=== PATIENT | male | born 1975 ===

== ENCOUNTER 2020-03-05 07:35 | Outpatient (REF) | payer OTHER, SELFPAY ==
--- NOTE | 2020-03-05 08:17 | XR_ITS ---
EXAMINATION: XR THORACOLUMBAR SPINE CLINICAL INFORMATION: Ankylosing spondylitis COMPARISON: Previous thoracic spine MRI May 2017 and x-ray May 2016 TECHNIQUE: 3 views of the thoracic spine including swimmer's view FINDINGS: Bone alignment is normal. No fracture or dislocation is seen. There are small vertebral body marginal osteophytes in the mid and lower thoracic spine. Disc spaces are normal. Paraspinal soft tissues are normal. XR/XR thoracic spine 2V IMPRESSION: Small marginal vertebral body osteophytes in the mid and lower thoracic spine.
== END 2020-03-05 07:36 | disposition home or self-care (01) ==
LOC: HO.XRAY 07:35
PROVIDERS: PCP Family Medicine; Referring Provider Family Medicine; Visit Provider Student in an Organized Health Care Education/Training Program
DX: M45.8 Ankylosing spondylitis sacral and sacrococcygeal region (principal); Z79.891 Long term (current) use of opiate analgesic; Z79.899 Other long term (current) drug therapy
CPT/HCPCS: 72070; 99212

== ENCOUNTER 2020-08-12 11:46 | Outpatient (REF) | payer OTHER, SELFPAY ==
[2020-08-12 12:49] LABS: MANUAL DIFF FLAG NO
[2020-08-12 12:56] LABS: Basophils Percent Auto 0.2 % (0-2); Eosinophils Absolute Auto 0.1 X10*3/uL (0.0-0.4); Eosinophils Percent Auto 1.2 % (0-4); Hematocrit 46.5 % (42-52); Hemoglobin 15.2 g/dl (14.0-18.0); Imm Gran Abs Auto 0.01 X10*3/uL (0.00-0.03); Imm Gran Pct Auto 0.2 % (0.0-0.4); Lymphocytes Percent Auto 38.2 % (20-40); Mean Corpuscular HGB Conc 32.7 g/dl (31.0-36.0); Mean Corpuscular Hemoglobin 26.7 pg (27.0-33.0); Mean Corpuscular Volume 81.6 fL (80-98); Mean Platelet Volume 10.6 fL (9.4-12.4); Monocytes Absolute Auto 0.4 X10*3/uL (0.1-1.2); Neutrophils Absolute Auto 2.7 X10*3/uL (2.0-8.3); Neutrophils Percent Auto 53.2 % (45-73); Platelet Count 210 X10*3/uL (160-400); Red Cell Distribution Width 12.6 % (11.0-16.0); White Blood Count 5.1 X10*3/uL (4.8-10.8)
[2020-08-12 13:26] LABS: Alanine Aminotransferase 16 U/L (0-40); Albumin Level 4.6 g/dL (3.5-5.0); Alkaline Phosphatase 63 U/L (39-117); Anion Gap 12 (12-20); Aspartate Amino Transferase 14 U/L (5-37); Bilirubin Total 0.4 mg/dL (0.0-1.0); Blood Urea Nitrogen 14 mg/dL (9-16); C Reactive Protein 0.78 mg/dL (< or = 0.50); Calcium 9.7 mg/dL (8.4-10.2); Carbon Dioxide 29 mmol/L (22-29); Chloride 105 mmol/L (96-108); Estimated Glomerular Filt Rate > 60; Glucose Random 84 mg/dL (60-115); Sodium 141 mmol/L (135-145); Total Protein 7.2 g/dL (6.5-8.0)
[2020-08-12 14:03] LABS: Erythrocyte Sedimentation Rate 2 MM/HR (0-15)
== END 2020-08-12 11:47 | disposition home or self-care (01) ==
LOC: HO.LAB 11:46
PROVIDERS: Visit Provider Student in an Organized Health Care Education/Training Program
DX: M45.8 Ankylosing spondylitis sacral and sacrococcygeal region (principal)
CPT/HCPCS: 36415; 80053; 85025; 85652; 86140

== ENCOUNTER → 2020-08-20 07:23 | Outpatient (BNVA) | payer OTHER, SELFPAY | PROVIDERS: PCP Family Medicine; Visit Provider Student in an Organized Health Care Education/Training Program | DX: M45.8 Ankylosing spondylitis sacral and sacrococcygeal region (principal) | CPT/HCPCS: 99212 ==

== ENCOUNTER → 2021-03-21 09:26 | Outpatient (BNVA) | payer OTHER, SELFPAY | PROVIDERS: PCP Family Medicine; Visit Provider Nurse Practitioner Family | DX: M45.8 Ankylosing spondylitis sacral and sacrococcygeal region (principal) | CPT/HCPCS: 99212 ==

== ENCOUNTER → 2021-05-16 14:49 | Outpatient (BNVA) | payer OTHER, SELFPAY | PROVIDERS: PCP Family Medicine; Visit Provider Anesthesiology | DX: M45.8 Ankylosing spondylitis sacral and sacrococcygeal region (principal) | CPT/HCPCS: 99202 ==

== ENCOUNTER → 2021-07-18 09:34 | Outpatient (BNVA) | payer OTHER, SELFPAY | PROVIDERS: PCP Family Medicine; Visit Provider Nurse Practitioner Family | DX: Z13.89 Encounter for screening for other disorder (principal) ==

== ENCOUNTER 2021-07-18 12:43 | Outpatient (REF) | payer OTHER, SELFPAY ==
[2021-07-18 13:29] LABS: MANUAL DIFF FLAG NO
[2021-07-18 13:32] LABS: Basophils Percent Auto 0.2 % (0-2); Eosinophils Absolute Auto 0.1 X10*3/uL (0.0-0.4); Eosinophils Percent Auto 1.2 % (0-4); Hematocrit 44.9 % (42.0-52.0); Hemoglobin 14.9 g/dl (14.0-18.0); Imm Gran Abs Auto 0.01 X10*3/uL (0.00-0.03); Imm Gran Pct Auto 0.2 % (0.0-0.4); Lymphocytes Absolute Auto 2.9 X10*3/uL (1.2-4.9); Lymphocytes Percent Auto 50.1 % (20-40); Mean Corpuscular HGB Conc 33.2 g/dl (31.0-36.0); Mean Corpuscular Hemoglobin 27.2 pg (27.0-33.0); Mean Corpuscular Volume 81.9 fL (80.0-98.0); Mean Platelet Volume 10.3 fL (9.4-12.4); Monocytes Absolute Auto 0.3 X10*3/uL (0.1-1.2); Monocytes Percent Auto 5.8 % (2-11); Neutrophils Absolute Auto 2.5 x10*3/uL (2.0-8.3); Neutrophils Percent Auto 42.5 % (45-73); Platelet Count 213 X10*3/uL (160-400); Red Blood Count 5.48 X10*6/uL (4.60-5.80); Red Cell Distribution Width 12.6 % (11.0-16.0); White Blood Count 5.9 X10*3/uL (4.8-10.8)
[2021-07-18 13:50] LABS: Alanine Aminotransferase 18 U/L (0-40); Albumin Level 4.8 g/dL (3.5-5.0); Alkaline Phosphatase 56 U/L (39-117); Anion Gap 12 (12-20); Aspartate Amino Transferase 14 U/L (5-37); Bilirubin Total 0.4 mg/dL (0.0-1.0); Blood Urea Nitrogen 12 mg/dL (9-16); C Reactive Protein 0.36 mg/dL (< or = 0.50); Calcium 9.3 mg/dL (8.4-10.2); Carbon Dioxide 27 mmol/L (22-29); Chloride 104 mmol/L (96-108); Estimated Glomerular Filt Rate > 60; Glucose Random 90 mg/dL (60-115); Potassium 4.2 mmol/L (3.3-5.1); Sodium 139 mmol/L (135-145); Total Protein 7.4 g/dL (6.5-8.0)
[2021-07-18 14:15] LABS: Erythrocyte Sedimentation Rate 2 MM/HR (0-15)
== END 2021-07-18 12:44 | disposition home or self-care (01) ==
LOC: HO.WFDLDS 12:43
PROVIDERS: Visit Provider Nurse Practitioner Family
DX: M45.8 Ankylosing spondylitis sacral and sacrococcygeal region (principal)
CPT/HCPCS: 36415; 80053; 85025; 85652; 86140

== ENCOUNTER 2021-10-24 10:22 | Outpatient (REF) | payer OTHER, SELFPAY ==
[2021-10-24 10:44] LABS: MANUAL DIFF FLAG NO
[2021-10-24 10:54] LABS: Basophils Percent Auto 0.2 % (0-2); Eosinophils Absolute Auto 0.1 X10*3/uL (0.0-0.4); Eosinophils Percent Auto 1.6 % (0-4); Hematocrit 45.6 % (42.0-52.0); Hemoglobin 15.1 g/dl (14.0-18.0); Imm Gran Abs Auto 0.01 X10*3/uL (0.00-0.03); Imm Gran Pct Auto 0.2 % (0.0-0.4); Lymphocytes Absolute Auto 2.1 X10*3/uL (1.2-4.9); Lymphocytes Percent Auto 41.5 % (20-40); Mean Corpuscular HGB Conc 33.1 g/dl (31.0-36.0); Mean Corpuscular Hemoglobin 26.7 pg (27.0-33.0); Mean Corpuscular Volume 80.7 fL (80.0-98.0); Mean Platelet Volume 10.6 fL (9.4-12.4); Monocytes Absolute Auto 0.3 X10*3/uL (0.1-1.2); Monocytes Percent Auto 6.7 % (2-11); Neutrophils Absolute Auto 2.6 x10*3/uL (2.0-8.3); Neutrophils Percent Auto 49.8 % (45-73); Platelet Count 210 X10*3/uL (160-400); Red Blood Count 5.65 X10*6/uL (4.60-5.80); Red Cell Distribution Width 12.7 % (11.0-16.0); White Blood Count 5.1 X10*3/uL (4.8-10.8)
[2021-10-24 11:23] LABS: Alanine Aminotransferase 17 U/L (0-40); Aspartate Amino Transferase 12 U/L (5-37); C Reactive Protein 0.94 mg/dL (< or = 0.50); Estimated Glomerular Filt Rate > 60
[2021-10-24 11:38] LABS: Erythrocyte Sedimentation Rate 2 MM/HR (0-15)
== END 2021-10-24 10:23 | disposition home or self-care (01) ==
LOC: HO.10HDL 10:22
PROVIDERS: Visit Provider Nurse Practitioner Family
DX: M45.8 Ankylosing spondylitis sacral and sacrococcygeal region (principal); L98.9 Disorder of the skin and subcutaneous tissue, unspecified; Z79.899 Other long term (current) drug therapy
CPT/HCPCS: 36415; 82565; 84450; 84460; 85025; 85652; 86140; 99212

== ENCOUNTER → 2021-11-07 10:25 | Outpatient (BNVA) | payer OTHER, SELFPAY | PROVIDERS: PCP Family Medicine; Visit Provider Nurse Practitioner Family | DX: M45.8 Ankylosing spondylitis sacral and sacrococcygeal region (principal); L98.9 Disorder of the skin and subcutaneous tissue, unspecified | CPT/HCPCS: 99212 ==

== ENCOUNTER 2022-01-30 12:19 | Outpatient (REF) | payer OTHER, SELFPAY ==
[2022-01-30 13:42] LABS: MANUAL DIFF FLAG NO
[2022-01-30 13:48] LABS: Basophils Percent Auto 0.3 % (0-2); Eosinophils Absolute Auto 0.1 X10*3/uL (0.0-0.4); Eosinophils Percent Auto 1.8 % (0-4); Hematocrit 46.8 % (42.0-52.0); Hemoglobin 15.3 g/dl (14.0-18.0); Imm Gran Abs Auto 0.02 X10*3/uL (0.00-0.03); Imm Gran Pct Auto 0.3 % (0.0-0.4); Lymphocytes Absolute Auto 3.1 X10*3/uL (1.2-4.9); Lymphocytes Percent Auto 50.2 % (20-40); Mean Corpuscular HGB Conc 32.7 g/dl (31.0-36.0); Mean Corpuscular Hemoglobin 26.9 pg (27.0-33.0); Mean Corpuscular Volume 82.4 fL (80.0-98.0); Mean Platelet Volume 10.7 fL (9.4-12.4); Monocytes Absolute Auto 0.4 X10*3/uL (0.1-1.2); Monocytes Percent Auto 6.3 % (2-11); Neutrophils Absolute Auto 2.5 x10*3/uL (2.0-8.3); Neutrophils Percent Auto 41.1 % (45-73); Platelet Count 236 X10*3/uL (160-400); Red Blood Count 5.68 X10*6/uL (4.60-5.80); Red Cell Distribution Width 12.7 % (11.0-16.0); White Blood Count 6.2 X10*3/uL (4.8-10.8)
[2022-01-30 14:30] LABS: Erythrocyte Sedimentation Rate 2 MM/HR (0-15)
[2022-01-30 14:36] LABS: Alanine Aminotransferase 15 U/L (0-40); Albumin Level 4.6 g/dL (3.5-5.0); Alkaline Phosphatase 57 U/L (39-117); Anion Gap 13 (12-20); Aspartate Amino Transferase 12 U/L (5-37); Bilirubin Total 0.4 mg/dL (0.0-1.0); Blood Urea Nitrogen 17 mg/dL (9-16); C Reactive Protein 0.36 mg/dL (< or = 0.50); Calcium 9.7 mg/dL (8.4-10.2); Carbon Dioxide 29 mmol/L (22-29); Chloride 104 mmol/L (96-108); Estimated Glomerular Filt Rate > 60; Glucose Random 91 mg/dL (60-115); Potassium 5.5 mmol/L (3.3-5.1); Sodium 140 mmol/L (135-145); Total Protein 7.1 g/dL (6.5-8.0)
== END 2022-01-30 12:20 | disposition home or self-care (01) ==
LOC: HO.10HDL 12:19
PROVIDERS: Visit Provider Nurse Practitioner Family
DX: M45.8 Ankylosing spondylitis sacral and sacrococcygeal region (principal); L98.9 Disorder of the skin and subcutaneous tissue, unspecified
CPT/HCPCS: 36415; 80053; 85025; 85652; 86140; 99212

== ENCOUNTER 2022-02-01 07:34 | Outpatient (REF) | payer OTHER, SELFPAY ==
[2022-02-01 11:14] LABS: Potassium 3.9 mmol/L (3.3-5.1)
== END 2022-02-01 07:35 | disposition home or self-care (01) ==
LOC: HO.WFDLDS 07:34
PROVIDERS: Visit Provider Nurse Practitioner Family
DX: E87.5 Hyperkalemia (principal)
CPT/HCPCS: 36415; 84132

== ENCOUNTER 2022-04-10 09:39 | Outpatient (REF) | payer OTHER, SELFPAY ==
[2022-04-10 12:10] LABS: Amphetamine Screen Urine Not Detected (Not Detect); Barbiturates, Urine Not Detected (Not Detect); Benzodiazepines Screen Urine Not Detected (Not Detect); Cannabinoid Screen Urine Not Detected (Not Detect); Cocaine Screen Urine Not Detected (Not Detect); Fentanyl, urine Not Detected (Not Detect); Opiate Screen Urine Not Detected (Not Detect); Phencyclidine Screen Urine Not Detected (Not Detect)
== END 2022-04-10 09:40 | disposition home or self-care (01) ==
LOC: HO.WFDLDS 09:39
PROVIDERS: Visit Provider Nurse Practitioner Family
DX: Z79.899 Other long term (current) drug therapy (principal)
CPT/HCPCS: 80307; 80373

== ENCOUNTER 2022-05-22 11:54 | Outpatient (REF) | payer OTHER, SELFPAY ==
[2022-05-22 13:09] LABS: MANUAL DIFF FLAG NO
[2022-05-22 14:36] LABS: Basophils Percent Auto 0.3 % (0-2); Eosinophils Absolute Auto 0.1 X10*3/uL (0.0-0.4); Eosinophils Percent Auto 1.8 % (0-4); Hematocrit 43.2 % (42.0-52.0); Hemoglobin 14.5 g/dl (14.0-18.0); Imm Gran Abs Auto 0.02 X10*3/uL (0.00-0.03); Imm Gran Pct Auto 0.3 % (0.0-0.4); Lymphocytes Percent Auto 48.8 % (20-40); Mean Corpuscular HGB Conc 33.6 g/dl (31.0-36.0); Mean Corpuscular Hemoglobin 27.8 pg (27.0-33.0); Mean Corpuscular Volume 82.8 fL (80.0-98.0); Monocytes Absolute Auto 0.3 X10*3/uL (0.1-1.2); Monocytes Percent Auto 4.8 % (2-11); Neutrophils Absolute Auto 2.7 x10*3/uL (2.0-8.3); Platelet Count 242 X10*3/uL (160-400); Red Blood Count 5.22 X10*6/uL (4.60-5.80); Red Cell Distribution Width 12.9 % (11.0-16.0); White Blood Count 6.1 X10*3/uL (4.8-10.8)
[2022-05-22 15:03] LABS: Alanine Aminotransferase 12 U/L (0-40); Albumin Level 4.5 g/dL (3.5-5.0); Alkaline Phosphatase 53 U/L (39-117); Anion Gap 15 (12-20); Aspartate Amino Transferase 11 U/L (5-37); Bilirubin Total 0.4 mg/dL (0.0-1.0); Blood Urea Nitrogen 12 mg/dL (9-16); C Reactive Protein 0.33 mg/dL (< or = 0.50); Calcium 9.4 mg/dL (8.4-10.2); Carbon Dioxide 27 mmol/L (22-29); Chloride 106 mmol/L (96-108); Estimated Glomerular Filt Rate > 60; Glucose Random 87 mg/dL (60-115); Sodium 143 mmol/L (135-145); Total Protein 6.8 g/dL (6.5-8.0)
[2022-05-22 15:20] LABS: Erythrocyte Sedimentation Rate 2 MM/HR (0-15)
[2022-05-24 04:32] LABS: HBc Num1 0.07 S/CO (0.00-0.79); HBsAGNum1 0.36 S/CO (0.00-0.99); Hepatitis A Antibody IgM 0.22 Index (0-0.79); Hepatitis B Core Antibody Nonreactive (Nonreactive); Hepatitis B Surface Antigen Negative (Negative); ~HepC Num1 0.16 S/CO (0.00-0.79); ~Hepatitis A Antibody IgM Nonreactive (Nonreactive); ~Hepatitis B Surface Antibody NONREACTIVE (Nonreactive); ~Hepatitis C Antibody Nonreactive (Nonreactive)
[2022-05-24 13:48] LABS: TS Negative Control Passed; TS Panel A 6; TS Panel B 2; TS Positive Control Passed; TSpotTB Borderline (Negative)
== END 2022-05-22 11:55 | disposition home or self-care (01) ==
LOC: HO.LAB 11:54
PROVIDERS: PCP Family Medicine; Visit Provider Nurse Practitioner Family
DX: Z11.1 Encounter for screening for respiratory tuberculosis (principal); L98.9 Disorder of the skin and subcutaneous tissue, unspecified; M45.8 Ankylosing spondylitis sacral and sacrococcygeal region
CPT/HCPCS: 36415; 80053; 85025; 85652; 86140; 86481; 86704; 86706; 86709; 86803; 87340; 99212

== ENCOUNTER 2022-05-29 11:40 | Outpatient (REF) | payer OTHER, SELFPAY ==
[2022-05-31 16:24] LABS: TS Negative Control Passed; TS Panel A 2; TS Panel B 1; TS Positive Control Passed; TSpotTB Negative (Negative)
== END 2022-05-29 11:41 | disposition home or self-care (01) ==
LOC: HO.LAB 11:40
PROVIDERS: Visit Provider Nurse Practitioner Family
DX: Z11.1 Encounter for screening for respiratory tuberculosis (principal); M45.8 Ankylosing spondylitis sacral and sacrococcygeal region
CPT/HCPCS: 36415; 86481

== ENCOUNTER 2022-09-25 11:57 | Outpatient (REF) | payer OTHER, SELFPAY ==
[2022-09-25 13:06] LABS: MANUAL DIFF FLAG NO
[2022-09-25 13:51] LABS: Basophils Percent Auto 0.4 % (0-2); Eosinophils Absolute Auto 0.1 X10*3/uL (0.0-0.4); Eosinophils Percent Auto 2.1 % (0-4); Hematocrit 44.4 % (42.0-52.0); Hemoglobin 14.5 g/dl (14.0-18.0); Imm Gran Abs Auto 0.02 X10*3/uL (0.00-0.03); Imm Gran Pct Auto 0.4 % (0.0-0.4); Lymphocytes Absolute Auto 2.3 X10*3/uL (1.2-4.9); Lymphocytes Percent Auto 43.4 % (20-40); Mean Corpuscular HGB Conc 32.7 g/dl (31.0-36.0); Mean Corpuscular Hemoglobin 26.7 pg (27.0-33.0); Mean Corpuscular Volume 81.6 fL (80.0-98.0); Mean Platelet Volume 10.5 fL (9.4-12.4); Monocytes Absolute Auto 0.3 X10*3/uL (0.1-1.2); Neutrophils Absolute Auto 2.6 x10*3/uL (2.0-8.3); Neutrophils Percent Auto 47.7 % (45-73); Platelet Count 232 X10*3/uL (160-400); Red Blood Count 5.44 X10*6/uL (4.60-5.80); Red Cell Distribution Width 12.9 % (11.0-16.0); White Blood Count 5.3 X10*3/uL (4.8-10.8)
[2022-09-25 14:33] LABS: Erythrocyte Sedimentation Rate 2 MM/HR (0-15)
[2022-09-26 04:41] LABS: HBS Num1 0.28 mIU/mL (0-7.99); HBc Num1 0.08 S/CO (0.00-0.79); HBsAGNum1 0.37 S/CO (0.00-0.99); Hepatitis A Antibody IgM 0.27 Index (0-0.79); Hepatitis B Core Antibody Nonreactive (Nonreactive); Hepatitis B Surface Antigen Negative (Negative); ~HepC Num1 0.07 S/CO (0.00-0.79); ~Hepatitis A Antibody IgM Nonreactive (Nonreactive); ~Hepatitis B Surface Antibody NONREACTIVE (Nonreactive); ~Hepatitis C Antibody Nonreactive (Nonreactive)
[2022-09-27 21:18] LABS: TS Negative Control Passed; TS Panel A 0; TS Panel B 0; TS Positive Control Passed; TSpotTB Negative (Negative)
== END 2022-09-25 11:58 | disposition home or self-care (01) ==
LOC: HO.LAB 11:57
PROVIDERS: PCP Family Medicine; Visit Provider Internal Medicine Rheumatology
DX: M45.8 Ankylosing spondylitis sacral and sacrococcygeal region (principal); Z79.899 Other long term (current) drug therapy
CPT/HCPCS: 36415; 85025; 85652; 86140; 86481; 86704; 86706; 86709; 86803; 87340; 99212

== ENCOUNTER 2022-09-25 11:57 | Outpatient (AMB) | payer OTHER, SELFPAY ==
[2022-09-25 12:04] VITALS: BP 121/76; PULSE 86; RESP 16; TEMP 36.6; O2SAT 98; BMI 26.0
--- NOTE | 2022-09-25 12:04 | A.OFFVIS_ITS ---
Intake Vital Signs 09/25/22 12:04 Height 5 ft 7 in Weight 166 lb 0.129 oz BMI 26.0 BP 121/76 Blood Pressure Location Lt brachial Position Sitting Respiration 16 Pulse 86 Pulse Source Pulse Oximeter Temp 97.9 F Temp Source Tympanic Pulse Oximetry (%) 98 Oxygen Delivery Method Room Air Intake Visit Reasons: psa Dermatological Surgeon Required: No Accompanied by: Self / Same As Patient Allergies No Known Allergies Allergy (Verified 09/25/22 12:06) Medication List - Last Reconciled 09/25/22 by Krystal Mancuso RN clotrimazole-betamethasone 1-0.05 % appl topical etanercept (Enbrel SureClick) 50 mg subcut QWEEK ketoconazole 2% 1 appl topical 2XW naproxen 500 mg PO BID PRN tramadol 50 mg PO Q6H PRN HPI HPI Comments History of Present Illness Details The patient returns for evaluation of his ankylosing spondylitis. He remains on Enbrel 50 mg weekly. This was originally started he says because of some buttock pain. That did improve relatively quickly with the Enbrel. He is left with thoracic spine pain. This is worse at the end of the day. It also bothers him at night. For that pain he does take tramadol tablets, 50 mg, taking 2 b.i.d. if needed. Most days he does take them. He does have some naproxen that he uses as well but that does not seem to help as much. He did try to taper off the tramadol but it made him feel worse. In the past he had been on Humira which seemed to not be as helpful as the Enbrel has been. He did have a skin lesion on his legs that was biopsied and was felt to be psoriasis. With some creams that has improved. [facility] Medical History Ankylosing spondylitis Surgical History Hx of lithotripsy Family History Father CVD (cardiovascular disease) Hypertension Mother Hypertension Social History Household Members: Spouse Housing: House Alcohol intake: never Patient Tobacco Use Status: Current everyday Tobacco user Tobacco use type: Cigarette Cigarettes Per Day: 2 e-Cigarette/Vaping Use: Currently Using Current occupational status: employed Current occupation: [employer] Review of Systems Const Details: Negative for appetite change, weight change, fever, chills, malaise and fatigue Eyes Details: Negative for vision change, dry eyes,headaches and dizziness ENT Details: Negative for hearing change, tinnitus, oral ulcer, nose bleeds and oral dryness. Card Details: Negative chest pain, edema and syncope Resp Details: Negative for SOB, cough and wheezing GI Details: Negative indigestion/heartburn, nausea, abdominal pain, bowel changes, diarrhea, constipation and bloody stool. Skin/Breast Details: History of some pretibial lesions that were biopsied and felt to be psoriasis. Negative for itching, rash, hives, Raynaud's symptoms, sun sensitivity, and skin cancer Endo Details: Negative for polyuria and polydypsia Demario/Lymph Details: Negative for excessive bruising or bleeding. Physical Exam Vital Signs: Last Vital Signs Temp 97.9 F 09/25/22 12:04 Pulse 86 09/25/22 12:04 Resp 16 09/25/22 12:04 BP 121/76 09/25/22 12:04 Pulse Ox 98 09/25/22 12:04 Oxygen Delivery Method Room Air 09/25/22 12:04 BMI result Body Mass Index 26.0 APPEARANCE: Patient in no acute distress EYES no redness, pupils equal and reactive to light, eyelids normal EXTREMITIES: No edema, no calf tenderness, normal peripheral pulses. SKIN: No inflammatory or neoplastic lesions. Normal color and turgor JOINT EXAM: SKIN:? Dry, flat area of scaling noted on the right martínez, approximately 1.5 inch x 1.5 inch. Its slightly a pale pink there is no erythema of the surrounding skin, no drainage noted.? Very small scattered dry patches noted throughout the left lower extremity.? Small areas of pitting noted on nails bilaterally. JOINT EXAM:?? Cervical Spine:? Full range of motion without pain; no tenderness. Normal Occiput to wall test. Thoracic Spine:? No scoliosis.? No tenderness on palpation. Lumbar Spine:? Alignment normal.? Full range of motion without pain, no tenderness.? Negative Sheila test.? Hands: LEFT: Normal pain-free range of motion without tenderness, swelling, increased warmth or erythema. Able to make a full fist and has a good otorhinolaryngologist strength. ? RIGHT: Normal pain-free range of motion without tenderness, swelling, increased warmth or erythema. Able to make a full fist and has a good otorhinolaryngologist strength. Wrists:? Normal pain-free range of motion without tenderness, swelling, increased warmth or erythema. Elbows: Normal pain-free range of motion without tenderness, swelling, increased warmth or erythema. Shoulders:? Full range of motion without pain. No tenderness, weakness, swelling, increased warmth or erythema. Hips:? Full range of motion without pain. Hip bursa:? No tenderness. Knees:?? Normal pain-free range of motion without tenderness, swelling, increased warmth or erythema.? There is no effusion or crepitation Ankles:? Normal pain-free range of motion without tenderness, swelling, increased warmth or erythema. Feet:? Normal pain-free range of motion without tenderness, swelling, increased warmth or erythema. Results Reviewed Results Reviewed: [address] [address] XRay Report Signed Patient: Fabian Nguyen MR#: [id number] : 1975 Acct:[id number] Age/Sex: 44 / M ADM Date: 03/05/[address]: Jesse Chiu MD Ordering Physician: Jesse Chiu MD Date of Service: 03/05/20 Procedure(s): XR thoracic spine 2V Accession Number(s): [id number] cc: Jesse Chiu MD~ EXAMINATION: XR THORACOLUMBAR SPINE CLINICAL INFORMATION: Ankylosing spondylitis? COMPARISON: Previous thoracic spine MRI May 2017 and x-ray May 2016? TECHNIQUE: 3 views of the thoracic spine including swimmer's view? FINDINGS: Bone alignment is normal. No fracture or dislocation is seen. There are small vertebral body marginal osteophytes in the mid and lower thoracic spine. Disc spaces are normal. Paraspinal soft tissues are normal. XR/XR thoracic spine 2V IMPRESSION: Small marginal vertebral body osteophytes in the mid and lower thoracic spine.? Dictated By: GAVIN MULLEN MD Assessment & Plan Assessment & Plan (1) Medication monitoring encounter: Comment: Tramadol pain contract updated 10/24/2021 Code(s): Z51.81 - Encounter for therapeutic drug level monitoring (2) Ankylosing spondylitis: Comment: Francis 2016-improved low back pain, no improvement thoracic back pain. Enbrel 10/2016- present Code(s): M45.9 - Ankylosing spondylitis of unspecified sites in spine Qualifiers: Ankylosing spondylitis location: sacral region Qualified Code(s): M45.8 - Ankylosing spondylitis sacral and sacrococcygeal region Plan The patient states he continues to get relief from his buttock pain that was helped previously with the Enbrel. He still gets this thoracic spine pain. It could be related to degenerative disease or just some resistant pains from his spondyloarthritis. 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 We had discussed previously with him the possibility of switching to a different TNF inhibitor, Cimzia. This would likely give him the sacroiliitis relief and may also help the pain in the thoracic spine. We could also consider Cosentyx, an IL 17 inhibitor but since he seems to tolerate the anti TNF drugs well I think we should try the Cimzia. On the other hand if this is primarily degenerative disease it is not going to help. I do not think there is any way of totally deciding which disorder is giving him the thoracic spine pain. I think in light of his symptoms and need for tramadol we should try Cimzia. We will check some lab work to assess his risk for Cimzia and if that looks favorable pursue approval of Cimzia with his insurance. In the meantime he will stay with the Enbrel. We will check acute phase reactants, CBC, hepatitis antibody studies and T spot testing. Follow-up in 3 months is recommended hopefully by then he will be on the Cimzia and we can assess his response to that treatment. Orders: Orders C Reactive Protein Today M45.9 - Ankylosing spondylitis of unspecified sites in spine, Z51.81 - Encounter for therapeutic drug level monitoring Complete Blood Count Auto Diff Today M45.9 - Ankylosing spondylitis of unspecified sites in spine, Z51.81 - Encounter for therapeutic drug level monitoring Erythrocyte Sedimentation Rate Today M45.9 - Ankylosing spondylitis of unspecified sites in spine, Z51.81 - Encounter for therapeutic drug level monitoring Hepatitis A,B,C Profile Today M45.9 - Ankylosing spondylitis of unspecified sites in spine, Z51.81 - Encounter for therapeutic drug level monitoring T Spot TB Today M45.9 - Ankylosing spondylitis of unspecified sites in spine, Z51.81 - Encounter for therapeutic drug level monitoring Coding Level of Care Code Est Pt Level 4 (87306) Diagnoses Medication monitoring encounter Z51.81 Ankylosing spondylitis M45.8 Ankylosing spondylitis location: sacral region
== END 2022-09-25 12:43 | disposition home or self-care (01) ==
LOC: HO.RHE 11:57
PROVIDERS: PCP Family Medicine; Visit Provider Internal Medicine Rheumatology
DX: Z51.81 Encounter for therapeutic drug level monitoring (principal); M45.8 Ankylosing spondylitis sacral and sacrococcygeal region
CPT/HCPCS: 99214

== ENCOUNTER 2022-12-25 10:14 | Outpatient (AMB) | payer OTHER, SELFPAY ==
[2022-12-25 10:16] VITALS: BP 108/70; PULSE 78; TEMP 36.9; O2SAT 99; BMI 26.6
--- NOTE | 2022-12-25 10:16 | MHC.OFFVIS ---
Intake Vital Signs 12/25/22 10:16 Height 5 ft 7 in Weight 169 lb 8.568 oz BMI 26.6 BP 108/70 Blood Pressure Location Rt brachial Position Sitting Pulse 78 Pulse Source Pulse Oximeter Temp 98.4 F Temp Source Skin Pulse Oximetry (%) 99 Oxygen Delivery Method Room Air Intake Visit Reasons: PSA Intake Note: Patient presents today to follow up on PsA. Cattle Killer Required: No Accompanied by: Spouse Allergies No Known Allergies Allergy (Verified 12/25/22 10:20) HPI HPI Comments History of Present Illness Details The patient presents with his for evaluation of his ankylosing spondylitis. We had switched him from Enbrel to Cimzia because of continued upper back pains. His lower back pain has not been present for quite some time since starting the Enbrel. He has a skin lesion on the right leg that was thought to be psoriasis. That is slowly fading with some topical treatment from a pipe threader. However the upper back pains seem to continue, he thinks they may be a little bit less significant. He does get help taking 100 mg of tramadol, he has the 50 mg tablets, twice a day. They do not seem to make him sedated or constipated. He has not had any side effect with the Cimzia. There has been no eye inflammation, oral ulcers, shortness of breath, cough or other skin rash. He notes the back pain isn't that noticeable when he is very active but when he sits for long time or lies down at night it seems to bother him. He does recall having received the injection in the past at [facility] that helped him for 3 months. He apparently did see another young adult librarian who also injected the back but the improvement did not return. COUNT INCLUDES THE [facility] Medical History Ankylosing spondylitis Surgical History Hx of lithotripsy Family History Father CVD (cardiovascular disease) Hypertension Mother Hypertension Social History (Updated 12/25/22 @ 10:20 by BRENDA Gongora) Household Members: Spouse Housing: House Alcohol intake: never Patient Tobacco Use Status: Current everyday Tobacco user Tobacco use type: Smokeless Tobacco e-Cigarette/Vaping Use: Currently Using Current occupational status: employed Current occupation: [employer] Review of Systems Const Details: Negative for appetite change, weight change, fever, chills, malaise and fatigue Eyes Details: Negative for vision change, dry eyes,headaches and dizziness Card Details: Negative chest pain, edema and syncope Resp Details: Negative for SOB, cough and wheezing GI Details: Negative indigestion/heartburn, nausea, abdominal pain, bowel changes, diarrhea, constipation and bloody stool. Endo Details: Negative for polyuria and polydypsia Demario/Lymph Details: Negative for excessive bruising or bleeding. Physical Exam Vital Signs: Last Vital Signs Temp 98.4 F 12/25/22 10:16 Pulse 78 12/25/22 10:16 BP 108/70 12/25/22 10:16 Pulse Ox 99 12/25/22 10:16 Oxygen Delivery Method Room Air 12/25/22 10:16 BMI result Body Mass Index 26.6 APPEARANCE: Patient in no acute distress EYES no redness, pupils equal and reactive to light, eyelids normal JOINT EXAM: SKIN:? Dry, flat area of scaling noted on the right martínez, approximately 1 inch x 1 inch. Its slightly a pale pink there is no erythema of the surrounding skin, no drainage noted.? No other areas of psoriasis noted.Small areas of pitting noted on nails bilaterally. JOINT EXAM:?? Cervical Spine:? Full range of motion without pain; no tenderness. Normal Occiput to wall test. Thoracic Spine:? No scoliosis.? No tenderness on palpation. Lumbar Spine:? Alignment normal.? Full range of motion without pain, no tenderness.? Negative Sheila test.? Hands: LEFT: Normal pain-free range of motion without tenderness, swelling, increased warmth or erythema. Able to make a full fist and has a good intelligence research specialist strength. ? RIGHT: Normal pain-free range of motion without tenderness, swelling, increased warmth or erythema. Able to make a full fist and has a good intelligence research specialist strength. Wrists:? Normal pain-free range of motion without tenderness, swelling, increased warmth or erythema. Elbows: Normal pain-free range of motion without tenderness, swelling, increased warmth or erythema. Shoulders:? Full range of motion without pain. No tenderness, weakness, swelling, increased warmth or erythema. Hips:? Full range of motion without pain. Hip bursa:? No tenderness. Knees:?? Normal pain-free range of motion without tenderness, swelling, increased warmth or erythema.? There is no effusion or crepitation Ankles:? Normal pain-free range of motion without tenderness, swelling, increased warmth or erythema. Feet:?Normal pain-free range of motion without tenderness, swelling, increased warmth or erythema. Results Reviewed Results Reviewed: Laboratory Tests 09/25/22 13:04 WBC 5.3 Hgb 14.5 ESR 2 C-Reactive Protein 0.50 Assessment & Plan Assessment & Plan (1) Osteoarthritis thoracic spine: Code(s): M47.814 - Spondylosis without myelopathy or radiculopathy, thoracic region (2) Medication monitoring encounter: Comment: Tramadol pain contract updated 10/24/2021 Code(s): Z51.81 - Encounter for therapeutic drug level monitoring (3) Ankylosing spondylitis: Comment: Francis 2016-improved low back pain, no improvement thoracic back pain. Enbrel 10/2016- 11/2022 changed to Cimzia Code(s): M45.9 - Ankylosing spondylitis of unspecified sites in spine Qualifiers: Ankylosing spondylitis location: sacral region Qualified Code(s): M45.8 - Ankylosing spondylitis sacral and sacrococcygeal region Plan It looks like again the lower back pain is well controlled with the TNF inhibitor, Cimzia. This suggested that the ain in that area is from his ankylosing spondylitis. The upper back pain continues about the same. He did get a benefit in the past with probably epidural steroids but the 2nd attempt at such injections was not helpful. We could consider sending him back to [facility] where he got the previous successful injections. It is also possible that a few more weeks of the Cimzia may be more effective so we will wait on that referral. A return in 6-8 weeks is recommended. He will continue use of the tramadol, 100 mg b.i.d. using the 50 mg tablets. He should continue with the topical cream these using on his psoriasis patch on the right leg. Coding Level of Care Code Est Pt Level 3 (06144) Diagnoses Osteoarthritis thoracic spine M47.814 Medication monitoring encounter Z51.81 Ankylosing spondylitis of sacral region M45.8 Ankylosing spondylitis location: sacral region
== END 2022-12-25 10:58 | disposition home or self-care (01) ==
PROVIDERS: PCP Family Medicine; Visit Provider Internal Medicine Rheumatology
DX: M47.814 Spondylosis without myelopathy or radiculopathy, thoracic region (principal); Z51.81 Encounter for therapeutic drug level monitoring; M45.8 Ankylosing spondylitis sacral and sacrococcygeal region
CPT/HCPCS: 99213

== ENCOUNTER → 2022-12-25 10:14 | Outpatient (BNVA) | payer OTHER, SELFPAY | PROVIDERS: PCP Family Medicine; Visit Provider Internal Medicine Rheumatology | DX: M47.814 Spondylosis without myelopathy or radiculopathy, thoracic region (principal); M45.8 Ankylosing spondylitis sacral and sacrococcygeal region; Z51.81 Encounter for therapeutic drug level monitoring | CPT/HCPCS: 99212 ==

== ENCOUNTER 2023-02-26 10:23 | Outpatient (REF) | payer OTHER, SELFPAY ==
--- NOTE | ~2023-02-26 | XR_ITS ---
EXAMINATION: XR CERVICAL SPINE, 5 VIEWS XR THORACIC SPINE, 4 VIEWS CLINICAL INFORMATION: Ankylosing spondylitis COMPARISON: Thoracic spine radiograph from 03/05/2020 TECHNIQUE: 5 views of the cervical spine 4 views of the thoracic spine FINDINGS: No acute visible fracture or dislocation. Slight right C5-C6 neuroforaminal narrowing. Very mild multilevel degenerative changes with osteophyte formation and facet arthropathy. Visualized dens is intact. Lateral masses are symmetric. Vertebral body heights and disc spaces are maintained. Prevertebral soft tissues are unremarkable. Posterior elements are intact. Paraspinal soft tissues are unremarkable. Visualized portions of the upper chest are unremarkable. XR/XR thoracic spine 3V IMPRESSION: 1. No acute visible fracture or dislocation. 2. Slight right C5-C6 neuroforaminal narrowing. 3. Very mild multilevel degenerative changes.
--- NOTE | ~2023-02-26 | XR_ITS ---
EXAMINATION: XR CERVICAL SPINE, 5 VIEWS XR THORACIC SPINE, 4 VIEWS CLINICAL INFORMATION: Ankylosing spondylitis COMPARISON: Thoracic spine radiograph from 03/05/2020 TECHNIQUE: 5 views of the cervical spine 4 views of the thoracic spine FINDINGS: No acute visible fracture or dislocation. Slight right C5-C6 neuroforaminal narrowing. Very mild multilevel degenerative changes with osteophyte formation and facet arthropathy. Visualized dens is intact. Lateral masses are symmetric. Vertebral body heights and disc spaces are maintained. Prevertebral soft tissues are unremarkable. Posterior elements are intact. Paraspinal soft tissues are unremarkable. Visualized portions of the upper chest are unremarkable. XR/XR cervical spine 4V IMPRESSION: 1. No acute visible fracture or dislocation. 2. Slight right C5-C6 neuroforaminal narrowing. 3. Very mild multilevel degenerative changes.
[2023-02-26 11:42] LABS: MANUAL DIFF FLAG NO
[2023-02-26 12:19] LABS: Basophils Percent Auto 0.2 % (0-2); Eosinophils Absolute Auto 0.2 X10*3/uL (0.0-0.4); Eosinophils Percent Auto 3.1 % (0-4); Hematocrit 44.9 % (42.0-52.0); Hemoglobin 14.8 g/dl (14.0-18.0); Imm Gran Abs Auto 0.01 X10*3/uL (0.00-0.03); Imm Gran Pct Auto 0.2 % (0.0-0.4); Lymphocytes Absolute Auto 3.1 X10*3/uL (1.2-4.9); Lymphocytes Percent Auto 55.2 % (20-40); Mean Corpuscular Hemoglobin 26.8 pg (27.0-33.0); Mean Corpuscular Volume 81.3 fL (80.0-98.0); Mean Platelet Volume 9.9 fL (9.4-12.4); Monocytes Absolute Auto 0.4 X10*3/uL (0.1-1.2); Monocytes Percent Auto 7.4 % (2-11); Neutrophils Absolute Auto 1.9 x10*3/uL (2.0-8.3); Neutrophils Percent Auto 33.9 % (45-73); Platelet Count 231 X10*3/uL (160-400); Red Blood Count 5.52 X10*6/uL (4.60-5.80); Red Cell Distribution Width 12.7 % (11.0-16.0); White Blood Count 5.5 X10*3/uL (4.8-10.8)
[2023-02-26 12:34] LABS: Alanine Aminotransferase 43 U/L (0-40); Albumin Level 4.4 g/dL (3.5-5.0); Alkaline Phosphatase 53 U/L (39-117); Anion Gap 12 (12-20); Aspartate Amino Transferase 20 U/L (5-37); Bilirubin Total 0.4 mg/dL (0.0-1.0); Blood Urea Nitrogen 14 mg/dL (9-16); C Reactive Protein 0.52 mg/dL (< or = 0.50); Calcium 9.8 mg/dL (8.4-10.2); Carbon Dioxide 30 mmol/L (22-29); Chloride 103 mmol/L (96-108); Estimated Glomerular Filt Rate > 60; Glucose Random 79 mg/dL (60-115); Potassium 4.1 mmol/L (3.3-5.1); Sodium 141 mmol/L (135-145); Total Protein 7.3 g/dL (6.5-8.0)
[2023-02-26 13:17] LABS: Erythrocyte Sedimentation Rate 2 MM/HR (0-15)
== END 2023-02-26 10:24 | disposition home or self-care (01) ==
LOC: HO.LAB 10:23
PROVIDERS: PCP Family Medicine; Visit Provider Student in an Organized Health Care Education/Training Program
DX: M45.8 Ankylosing spondylitis sacral and sacrococcygeal region (principal); M47.814 Spondylosis without myelopathy or radiculopathy, thoracic region; L40.9 Psoriasis, unspecified; Z51.81 Encounter for therapeutic drug level monitoring; Z79.899 Other long term (current) drug therapy
CPT/HCPCS: 36415; 72050; 72072; 80053; 85025; 85652; 86140; 99212

== ENCOUNTER 2023-02-26 10:23 | Outpatient (AMB) | payer OTHER, SELFPAY ==
--- NOTE | 2023-02-26 10:25 | A.OFFVIS_ITS ---
Intake Vital Signs 02/26/23 10:28 Height 5 ft 7 in Weight 171 lb 15.369 oz BMI 26.9 BP 104/70 Blood Pressure Location Lt brachial Position Sitting Pulse 76 Pulse Source Pulse Oximeter Temp 97 F Temp Source Skin Pulse Oximetry (%) 99 Oxygen Delivery Method Room Air Intake Visit Reasons: /OA with dr Rosado Intake Note: Pt last seen by Dr Miller on 12/25/22 presents today for follow up. Wants to discuss stopping Cimzia due to lots of side effects . Generation Manager Required: No Accompanied by: Self / Same As Patient Allergies No Known Allergies Allergy (Verified 02/26/23 10:25) Medication List - Last Reconciled 02/26/23 by Emily Rosado MD certolizumab pegol (Cimzia) 200 mg subcut Q2W clotrimazole-betamethasone 1-0.05 % appl topical ketoconazole 2% 1 appl topical 2XW naproxen 500 mg PO BID PRN tramadol 50 mg PO Q6-8H HPI HPI Comments History of Present Illness Details 47-year-old male with ankylosing spondyl itis returns for follow-up. He has been on Cimzia regularly for 3-4 months. He states that he does not feel any difference with Cimzia compared to Enbrel or Humira. Continues to have upper back pain in between the scapulae. States that the pain is generally worse with rest and improved with activity. He states that he has developed psoriasis skin lesions after being on TNF inhibitors. The rashes are on his shins. States that it was confirmed through a skin biopsy. He was prescribed topical creams which helped. States that he continues to take tramadol regularly and without it he can not function. He takes naproxen once or twice a week. Most recent history by Dr. Miller 12/2022: The patient presents with his for evaluation of his ankylosing spondylitis. We had switched him from Enbrel to Cimzia because of continued upper back pains. His lower back pain has not been present for quite some time since starting the Enbrel. He has a skin lesion on the right leg that was thought to be psoriasis. That is slowly fading with some topical treatment from a woods rider. However the upper back pains seem to continue, he thinks they may be a little bit less significant. He does get help taking 100 mg of tramadol, he has the 50 mg tablets, twice a day. They do not seem to make him sedated or constipated. He has not had any side effect with the Cimzia. There has been no eye inflammation, oral ulcers, shortness of breath, cough or other skin rash. He notes the back pain isn't that noticeable when he is very active but when he sits for long time or lies down at night it seems to bother him. He does recall having received the injection in the past at [facility] that helped him for 3 months. He apparently did see another pilot plant supervisor who also injected the back but the improvement did not return. [facility] Medical History (Updated 02/26/23 @ 11:30 by Emily Rosado MD) Psoriasis Ankylosing spondylitis Surgical History Hx of lithotripsy Family History Father CVD (cardiovascular disease) Hypertension Mother Hypertension Social History Household Members: Spouse Housing: House Alcohol intake: never Patient Tobacco Use Status: Current everyday Tobacco user Tobacco use type: Smokeless Tobacco e-Cigarette/Vaping Use: Currently Using Current occupational status: employed Current occupation: [employer] [facility] [place] Reports back pain Skin/Breast Reports rash Physical Exam Vital Signs: Last Vital Signs Temp 97 F 02/26/23 10:28 Pulse 76 02/26/23 10:28 BP 104/70 02/26/23 10:28 Pulse Ox 99 02/26/23 10:28 Oxygen Delivery Method Room Air 02/26/23 10:28 BMI result Body Mass Index 26.9 Const General: cooperative, healthy appearing and comfortable Nutritional Appearance: overweight Orientation/consciousness: patient oriented x3 Limitations: no limitations HEENT Head: Yes normocephalic and Yes atraumatic Mouth: moist mucous membranes Resp Effort & Inspection: normal respiratory effort and able to speak in complete sentences Auscultation: clear to auscultation bilaterally Cardio Rate: regular rate Rhythm: regular rhythm GI Inspection: No distended Palpation (GI): Soft to palpation and nontender Skin Other: Faint circular rashes on both shins Neuro General: patient oriented x3 Extrem Other: No active peripheral synovitis Sheila test 10-13 cm Negative straight leg raise test, negative ELY test bilaterally Normal range of motion of neck Results Reviewed Results Reviewed: RADIOLOGY ? Ankylosing spondylitis ? COMPARISON: ? ? CT abdomen and pelvis dated 02/17/2016 ? TECHNIQUE: ? ? AP, lateral, bilateral oblique and odontoid views of the cervical spine ? ? AP, lateral and swimmer's views of the thoracic spine AP, lateral and coned-down lateral views of the lumbar spine AP and bilateral oblique ? views of the SI joints ? ? FINDINGS: ? CERVICAL Normal alignment. Normal vertebral body heights and intervertebral disc spaces. Minor facet arthropathy with minimal ? ? foraminal narrowing noted at C3-C4 and C4-C5 levels bilaterally. ? ? Prevertebral soft tissues are within normal limits. No acute osseous ? ? abnormality. ? THORACIC Normal alignment. Normal vertebral body heights and ? ? intervertebral disc spaces. No gross bony destructive changes. Minor ? ? degenerative change with small osteophyte formations along the anterior ? ? endplates mid thoracic levels. There is mild bony osteopenia. No acute ? ? osseous abnormality. Paraspinal soft tissues are unremarkable. ? ? Visualized lungs are unremarkable. ? LUMBAR Mild bony osteopenia. Vertebral body heights are preserved. ? ? Intervertebral disc spaces are preserved. Normal alignment. Minor facet ? ? arthropathy lower lumbar level. Surrounding soft tissues are ? ? unremarkable. ? SI JOINTS Mild sclerotic changes noted in bilateral SI joints, right ? PAGE 1?Signed Report?(CONTINUED) ? Name: CHARLES DIXON ? ? Address: [address] [place] [address] ? ? [place] [id number] ? : 1975 Age: 40 ? ? Doctor: MARITO MICHEL MD ? ? Location: [facility] ? ? Exam Date: 05/22/2016 Time: 1128 ? greater than left compatible with sacroiliitis. There is decrease in the ? ? visualization of the right-sided joint space. These findings are also in ? ? keeping with sacroiliitis.. ? IMPRESSION: ? 1. Minor degenerative changes noted in the cervical, thoracic spine. ? 2. Bilateral sacroiliitis, right greater than left. ? ? 3. Minor facet arthropathy, otherwise unremarkable lumbar spine. ? 4. Overall bony osteopenia.. ? EXAMINATION: ? ? MR THORACIC SPINE WITHOUT CONTRAST ? CLINICAL INFORMATION: ? ? Thoracic pain. ? COMPARISON: ? ? Plain films of the thoracic spine from 05/22/2016. CT of the abdomen ? ? and pelvis from 02/17/2016 ? TECHNIQUE: ? ? MRI of the thoracic spine was obtained using routine sequences without ? ? contrast. ? FINDINGS: ? ? There are 12 rib-bearing thoracic vertebral bodies. Vertebral body ? ? height, signal, and sagittal alignment are maintained. Intervertebral ? ? disc height and hydration are maintained. No marrow edema. No ? ? intramedullary signal abnormality. The conus terminates at L1 ? ? normally. There is no disc herniation. There is no thoracic canal or ? ? foraminal stenosis. ? The visualized aorta is normal in caliber. No adenopathy is ? ? visualized. The upper abdominal viscera appear unremarkable. The ? ? imaged portions of the lung appear clear. Partially imaged on the ? ? localizer images is a known lipoma in the right posterolateral chest ? ? wall, just deep to the subcutaneous tissues. ? IMPRESSION: ? ? Unremarkable MRI appearance of the thoracic spine, without significant ?canal or foraminal stenosis. No marrow edema or intramedullary signal ?abnormality. ? XR/XR thoracic spine 2V IMPRESSION: Small marginal vertebral body osteophytes in the mid and lower thoracic spine. ? ? Assessment & Plan Assessment & Plan (1) Ankylosing spondylitis: Comment: dx 2017 bilateral sacroiliitis high inflammatory markers -ve HLA b27 Humira 2017-improved low back pain, no improvement thoracic back pain. Enbrel 10/2016- 11/2022 (similar effect) changed to Cimzia (11/2022 similar effects) Code(s): M45.9 - Ankylosing spondylitis of unspecified sites in spine Qualifiers: Ankylosing spondylitis location: sacral region Qualified Code(s): M45.8 - Ankylosing spondylitis sacral and sacrococcygeal region Plan: 47-year-old male with ankylosing spondylitis returns for follow-up. This is his 1st visit with me. Doing about the same since Cimzia was started. Good control of SI joint pain but continues to have pain in his upper back. Previous thoracic spine MRI was unremarkable, thoracic spine x-ray in 2020 showed signs of osteoarthritis. Today we had a long discussion about ankylosing spondylitis, its complications and risks and benefits of medications Will repeat neck and thoracic spine x-rays. Advised patient to try using Salonpas patch. Continue with Cimzia 200 mg every other week. Continue with topical steroid cream for psoriasis lesions. Check labs today. And labs before next visit in 4 months (2) Osteoarthritis thoracic spine: Code(s): M47.814 - Spondylosis without myelopathy or radiculopathy, thoracic region Qualifiers: Spinal osteoarthritis complication: without myelopathy or radiculopathy Qualified Code(s): M47.814 - Spondylosis without myelopathy or radiculopathy, thoracic region (3) Medication monitoring encounter: Comment: Tramadol pain contract updated 10/24/2021 Code(s): Z51.81 - Encounter for therapeutic drug level monitoring Plan: Stable on tramadol 100 mg Twice daily Plan I spent 45 minutes reviewing patient's chart, evaluating patient, ordering diagnostic workup, counseling patient and documenting in the chart Orders: Orders C Reactive Protein Today M45.9 - Ankylosing spondylitis of unspecified sites in spine XR cervical spine 4V Today M45.9 - Ankylosing spondylitis of unspecified sites in spine Comprehensive Met. Panel 4 Months M45.9 - Ankylosing spondylitis of unspecified sites in spine C Reactive Protein 4 Months M45.9 - Ankylosing spondylitis of unspecified sites in spine Complete Blood Count Auto Diff Today M45.9 - Ankylosing spondylitis of unspecified sites in spine Comprehensive Met. Panel Today M45.9 - Ankylosing spondylitis of unspecified sites in spine Erythrocyte Sedimentation Rate Today M45.9 - Ankylosing spondylitis of unspecified sites in spine XR thoracic spine 3V Today M45.9 - Ankylosing spondylitis of unspecified sites in spine Complete Blood Count Auto Diff 4 Months M45.9 - Ankylosing spondylitis of unspecified sites in spine Erythrocyte Sedimentation Rate 4 Months M45.9 - Ankylosing spondylitis of unspecified sites in spine Medications: Changed From certolizumab pegol (Cimzia) start 2 weeks after initial 3 doses (400mg every 2 weeks for 3 doses) are administered 200 mg subcut Q2W 1 ea 5RF M45.8 - Ankylosing spondylitis sacral and sacrococcygeal region To certolizumab pegol (Cimzia) 200 mg subcut Q2W 2 ea 3RF M45.8 - Ankylosing spondylitis sacral and sacrococcygeal region Refilled tramadol 50 mg PO Q6-8H 120 tabs 3RF M45.8 - Ankylosing spondylitis sacral and sacrococcygeal region Coding Level of Care Code Est Pt Level 5 (88304) Diagnoses Ankylosing spondylitis of sacral region M45.8 Ankylosing spondylitis location: sacral region Spondylosis of thoracic region without myelopathy or radiculopathy M47.814 Spinal osteoarthritis complication: without myelopathy or radiculopathy Medication monitoring encounter Z51.81
[2023-02-26 10:28] VITALS: BP 104/70; PULSE 76; TEMP 36.1; O2SAT 99; BMI 26.9
== END 2023-02-26 11:27 | disposition home or self-care (01) ==
LOC: HO.RHE 10:23
PROVIDERS: PCP Family Medicine; Visit Provider Student in an Organized Health Care Education/Training Program
DX: M45.8 Ankylosing spondylitis sacral and sacrococcygeal region (principal); M47.814 Spondylosis without myelopathy or radiculopathy, thoracic region; Z51.81 Encounter for therapeutic drug level monitoring
CPT/HCPCS: 99215

== ENCOUNTER 2023-04-09 09:45 | Outpatient (AMB) | payer OTHER, SELFPAY ==
--- NOTE | 2023-04-09 09:49 | A.OFFVIS_ITS ---
Intake Vital Signs 04/09/23 09:56 Height 5 ft 7 in Weight 170 lb 6 oz BMI 26.7 BP 118/60 Blood Pressure Location Lt brachial Position Sitting Respiration 16 Pulse 85 Pulse Source Pulse Oximeter Pulse Oximetry (%) 99 Oxygen Delivery Method Room Air Intake Visit Reasons: Spondylosis WO Myelopapthy or Radiculopathy Intake Note: Patient comes in for initial visit was referred by [facility]. Reports pain 07/22. Allergies No Known Allergies Allergy (Verified 04/09/23 09:58) HPI HPI Comments History of Present Illness Details Mr. Nguyen is very pleasant 47 years old gentleman who presents in my office with complains on pain in between his shoulder blades. He reports that this pain started 15 years ago. He does not know what caused the pain. He is under care of [facility] for the diagnosis of ankylosing spondylitis. He reports that he can not sleep normally because of his pain he can not do activities of daily living he can not take care of himself and he can not function normally. He is working full-time. He reports that heat applications aggravate his pain and cold applications and oral medication makes his pain bett er. The pain is worse in the morning and less severe during the day. In terms of tissue damage he reports his pain as punching cramping crushing, hot burning scalding searing, dull hurting heavy, spreading radiating piercing sensation. He is receiving tramadol for pain control and Cimzia injection. She also taking fish oil turmeric and Naprosyn. He had CT scans of the lumbar spine which demon strate significant advanced ankylosing changes. He also reports that medication he receives help his pain in the lower back but not in the thoracic spine. He reports in the past Dr. Kearney performed medial branch blocks for his thoracic spine which resulted in no improvement. Before that [facility] injected epidural steroids into him with good results for his pain. His last MRI of the thoracic spine was more than 6 years ago. He was a subject of multiple physical therapy sessions chiropractic manipulations and acupuncture in the past. Some of them were helpful for the pain in the lower back but not pain in thoracic spine. His past medical history significant for ankylosing spondylitis fatigue dizziness and fainting kidney stones and arthritis. He denies any surgical history. He admits smoking cigarettes denies drinking alcohol drinks 1 cup of coffee a day and denies recreational drugs. [facility] Medical History (Updated 04/09/23 @ 10:28 by Landon Barraza MD) Psoriasis Ankylosing spondylitis Surgical History Hx of lithotripsy Family History Father CVD (cardiovascular disease) Hypertension Mother Hypertension Social History Household Members: Spouse Housing: House Alcohol intake: never Patient Tobacco Use Status: Current everyday Tobacco user Tobacco use type: Smokeless Tobacco e-Cigarette/Vaping Use: Currently Using Current occupational status: employed Current occupation: [employer] Const Denies chills and Denies fever(s) Eyes Denies blurry vision, Denies exophthalmos and Denies diplopia ENT Reports Normal hearing present, Denies vertigo and Denies dizziness Card Denies chest pain, Denies chest pain at rest, Denies chest pain with activity, Reports diaphoresis, Denies syncope, Denies rapid heart rate, Denies pedal edema and Denies edema Resp Denies chest congestion, Denies cough, Denies hemoptysis, Denies excessive phlegm production, Denies pain on inspiration and Denies pain with cough GI Denies abdominal pain, Denies belching, Denies melena and Denies bloating Denies urinary incontinence Musc Denies as per HPI, Denies back pain and Denies tingling Neuro Reports Normal hearing present, Denies Abnormal speech present, Denies confusion, Denies vertigo, Denies dizziness, Denies syncope, Denies lack of coordination, Denies Sensory deficit (Neuro) and Denies tingling Psych Denies confusion, Denies depression and Denies irritability Physical Exam Vital Signs: Last Vital Signs Pulse 85 04/09/23 09:56 Resp 16 04/09/23 09:56 BP 118/60 04/09/23 09:56 Pulse Ox 99 04/09/23 09:56 Oxygen Delivery Method Room Air 04/09/23 09:56 BMI result Body Mass Index 26.7 Const General: No confusion Nutritional Appearance: overweight Orientation/consciousness: No confusion Limitations: no limitations HEENT Head: Yes normocephalic and Yes atraumatic Mouth: moist mucous membranes Resp Effort & Inspection: normal respiratory effort and able to speak in complete sentences Auscultation: clear to auscultation bilaterally GI Inspection: No distended Palpation (GI): Soft to palpation and nontender Skin Other: Faint circular rashes on both shins Neuro General: No confusion Cranial nerves: Yes Normal hearing present Speech: No Abnormal speech present Sensory Exam: No Sensory deficit (Neuro) Extrem Other: No active peripheral synovitis Negative straight leg raise test, negative ELY test bilaterally Normal range of motion of neck Tenderness on palpation in the projection of the T2-T3 thoracic vertebra spinous processes. Assessment & Plan Assessment & Plan (1) Ankylosing spondylitis: Code(s): M45.9 - Ankylosing spondylitis of unspecified sites in spine Qualifiers: Ankylosing spondylitis location: sacral region Qualified Code(s): M45.8 - Ankylosing spondylitis sacral and sacrococcygeal region Plan: Mr. Nguyen is very pleasant 47 years old gentleman who presents in my office with complains in upper thoracic back pain. History of ankylosing spondyloarthritis. History of epidural steroid injections with good results and no results from MBB of the thoracic spine. Last MRI 6 years ago. On physical exam tenderness on palpation in the projection of the thoracic spine. No radiating pain. Because of his diagnosis I would like to schedule him for MRI of the thoracic spine. I will see him here in the office after MRI is complete. (2) Osteoarthritis thoracic spine: Code(s): M47.814 - Spondylosis without myelopathy or radiculopathy, thoracic region Qualifiers: Spinal osteoarthritis complication: without myelopathy or radiculopathy Qualified Code(s): M47.814 - Spondylosis without myelopathy or radiculopathy, thoracic region (3) Medication monitoring encounter: Comment: Tramadol pain contract updated 10/24/2021 Code(s): Z51.81 - Encounter for therapeutic drug level monitoring Plan: Stable on tramadol 100 mg Twice daily (4) Chronic thoracic spine pain: Code(s): M54.6 - Pain in thoracic spine; G89.29 - Other chronic pain Plan I here by testify that I spent 45 minutes in conversation with this patient as well as evaluating his chart and organizing his note. Orders: Orders MR thoracic spine wo con Today G89.29 - Other chronic pain, M45.9 - Ankylosing spondylitis of unspecified sites in spine, M54.6 - Pain in thoracic spine Coding Level of Care Code New Pt Level 4 (08851) Diagnoses Ankylosing spondylitis of sacral region M45.8 Ankylosing spondylitis location: sacral region Spondylosis of thoracic region without myelopathy or radiculopathy M47.814 Spinal osteoarthritis complication: without myelopathy or radiculopathy Medication monitoring encounter Z51.81 Chronic thoracic spine pain M54.6; G89.29
[2023-04-09 09:56] VITALS: BP 118/60; PULSE 85; RESP 16; O2SAT 99; BMI 26.7
== END 2023-04-09 10:22 | disposition home or self-care (01) ==
PROVIDERS: PCP Family Medicine; Referring Provider Student in an Organized Health Care Education/Training Program; Visit Provider Anesthesiology
DX: M45.8 Ankylosing spondylitis sacral and sacrococcygeal region (principal); M47.814 Spondylosis without myelopathy or radiculopathy, thoracic region; Z51.81 Encounter for therapeutic drug level monitoring; M54.6 Pain in thoracic spine; G89.29 Other chronic pain
CPT/HCPCS: 99214

== ENCOUNTER 2023-04-09 09:45 | Outpatient (REF) | payer OTHER, SELFPAY ==
[2023-04-09 11:44] LABS: Alanine Aminotransferase 15 U/L (0-40); Albumin Level 4.5 g/dL (3.5-5.0); Alkaline Phosphatase 63 U/L (39-117); Anion Gap 12 (12-20); Aspartate Amino Transferase 11 U/L (5-37); Bilirubin Total 0.2 mg/dL (0.0-1.0); Blood Urea Nitrogen 11 mg/dL (9-16); Calcium 9.4 mg/dL (8.4-10.2); Carbon Dioxide 29 mmol/L (22-29); Chloride 105 mmol/L (96-108); Estimated Glomerular Filt Rate > 60; Glucose Random 101 mg/dL (60-115); Potassium 4.7 mmol/L (3.3-5.1); Sodium 141 mmol/L (135-145); Total Protein 7.4 g/dL (6.5-8.0)
== END 2023-04-09 09:46 | disposition home or self-care (01) ==
LOC: HO.LAB 09:45
PROVIDERS: Absent Provider Student in an Organized Health Care Education/Training Program; Visit Provider Anesthesiology
DX: M45.8 Ankylosing spondylitis sacral and sacrococcygeal region (principal); M47.814 Spondylosis without myelopathy or radiculopathy, thoracic region; R74.01 Elevation of levels of liver transaminase levels
CPT/HCPCS: 36415; 80053; 99212

== ENCOUNTER 2023-04-30 07:19 | Outpatient (REF) | payer OTHER, SELFPAY ==
--- NOTE | ~2023-04-30 | MR_ITS ---
EXAMINATION: MR THORACIC SPINE WITHOUT CONTRAST CLINICAL INFORMATION: Ankylosing spondylitis, interscapular pain COMPARISON: MRI thoracic spine 05/14/2017 TECHNIQUE: Multiplanar multisequence MR imaging of thoracic spine was done without IV contrast using standard sequences. FINDINGS: Normal thoracic kyphosis is preserved. Again noted straightening along the anterior cortices with squaring of the thoracic vertebral bodies, a finding commonly seen in the setting of ankylosing spondylitis. Please note CT would be more sensitive modality to assess for thin bridging syndesmophytes. No evidence of osteitis or inflammatory enthesitis. No significant spondylolisthesis. Stable mild depression along the T2, T3, and T5 upper endplates with stable mild chronic height loss. No suspicious osseous lesions. There is minimal disc desiccation and mild disc height loss in the mid thoracic spine. No disc bulges or herniations. There is no significant spinal canal or neural foraminal stenosis at any level. The thoracic spinal cord is normal in signal and morphology. No epidural fluid collection, hematoma, or mass. No significant abnormalities of the paraspinal musculature. No demonstrated abnormalities in the visualized neck, thorax, or upper abdomen. The descending thoracic aorta is of normal contour and caliber. MR/MR thoracic spine wo con IMPRESSION: Again noted straightening along the anterior cortices with squaring of the thoracic vertebral bodies, a finding commonly seen in the setting of ankylosing spondylitis. Please note CT would be more sensitive modality to assess for thin bridging syndesmophytes. No evidence of osteitis or inflammatory enthesitis. No spinal canal or neural foraminal stenosis at any level.
== END 2023-04-30 07:20 | disposition home or self-care (01) ==
LOC: HO.MRI 07:19
PROVIDERS: Visit Provider Anesthesiology
DX: M45.9 Ankylosing spondylitis of unspecified sites in spine (principal); M54.6 Pain in thoracic spine; G89.29 Other chronic pain
CPT/HCPCS: 72146

== ENCOUNTER 2023-05-21 09:18 | Outpatient (AMB) | payer OTHER, SELFPAY ==
--- NOTE | 2023-05-21 09:27 | A.OFFVIS_ITS ---
Intake Vital Signs 05/21/23 09:31 Height 5 ft 7 in Weight 170 lb 4 oz BMI 26.7 BP 136/88 Blood Pressure Location Lt radial Position Sitting Respiration 14 Pulse 80 Pulse Source Pulse Oximeter Pulse Oximetry (%) 99 Oxygen Delivery Method Room Air Intake Visit Reasons: MRI FOLLOW UP/RESULTS Intake Note: Patient comes in to discuss MRI results. Reports pain 6/10. Allergies No Known Allergies Allergy (Verified 05/21/23 09:30) HPI HPI Comments History of Present Illness Details Mr. Nguyen is very pleasant 47 years old gentleman who is back in my office to evaluate the MRI of the thoracic spine. The MRI of the thoracic spine did not show anything what we did not know. He has spondylosis of the thoracic spine with ankylosing spondylitis. However my impression is that her pain is coming mostly from myositis which is corresponding to his spondylitis. I offered him trigger point injections however he is on rheumatological medications which may have drug interactions with his rheumatology injections. I will request Dr. Kyle to give us a clearance for injection. If clearance will be obtained we will schedule him for the injection trigger point in bilateral rhomboid muscles on both sides of the thoracic spine in between his shoulder blades. Prior: complains on pain in between his shoulder blades. He reports that this pain started 15 years ago. He does not know what caused the pain. He is under care [place] [facility] for the diagnosis of ankylosing spondylitis. He reports that he can not sleep normally because of his pain he can not do activities of daily living he can not take care of himself and he can not function normally. He is working full-time. He reports that heat applications aggravate his pain and cold applications and oral medication makes his pain better. The pain is worse in the morning and less severe during the day. He is receiving tramadol for pain control and Cimzia injection. She also taking fish oil turmeric and Naprosyn. He had CT scans of the lumbar spine which demonstrate significant advanced ankylosing changes. He also reports that medication he receives help his pain in the lower back but not in the thoracic spine. He reports in the past Dr. Kearney performed medial branch blocks for his thoracic spine which resulted in no improvement. Before that [facility] injected epidural steroids into him with good results for his pain. His last MRI of the thoracic spine was more than 6 years ago. He was a subject of multiple physical therapy sessions chiropractic manipulations and acupuncture in the past. Some of them were helpful for the pain in the lower back but not pain in thoracic spine. His past medical history significant for ankylosing spondylitis fatigue dizziness and fainting kidney stones and arthritis. He denies any surgical history. He admits smoking cigarettes denies drinking alcohol drinks 1 cup of coffee a day and denies recreational drugs. [facility] Medical History (Updated 04/09/23 @ 10:28 by Landon Barraza MD) Psoriasis Ankylosing spondylitis Surgical History Hx of lithotripsy Family History Father CVD (cardiovascular disease) Hypertension Mother Hypertension Social History Household Members: Spouse Housing: House Alcohol intake: never Patient Tobacco Use Status: Current everyday Tobacco user Tobacco use type: Smokeless Tobacco e-Cigarette/Vaping Use: Currently Using Current occupational status: employed Current occupation: [employer] Review of Systems Const All systems reviewed & are unremarkable except as noted in HPI and below ENT Reports Normal hearing present Neuro Reports Normal hearing present, Denies Abnormal speech present, Denies confusion and Denies Sensory deficit (Neuro) Psych Denies confusion Physical Exam Vital Signs: Last Vital Signs Pulse 80 05/21/23 09:31 Resp 14 05/21/23 09:31 BP 136/88 05/21/23 09:31 Pulse Ox 99 05/21/23 09:31 Oxygen Delivery Method Room Air 05/21/23 09:31 BMI result Body Mass Index 26.7 Const General: No confusion Nutritional Appearance: overweight Orientation/consciousness: No confusion Limitations: no limitations HEENT Head: Yes normocephalic and Yes atraumatic Mouth: moist mucous membranes Resp Effort & Inspection: normal respiratory effort and able to speak in complete sentences Auscultation: clear to auscultation bilaterally GI Inspection: No distended Palpation (GI): Soft to palpation and nontender Skin Other: Faint circular rashes on both shins Neuro General: No confusion Cranial nerves: Yes Normal hearing present Speech: No Abnormal speech present Sensory Exam: No Sensory deficit (Neuro) Extrem Other: No active peripheral synovitis Negative straight leg raise test, negative ELY test bilaterally Normal range of motion of neck Tenderness on palpation in the projection of the T2-T3 thoracic vertebra spinous processes. Results Reviewed Results Reviewed: MR THORACIC SPINE WITHOUT CONTRAST CLINICAL INFORMATION: Ankylosing spondylitis, interscapular pain COMPARISON: MRI thoracic spine 05/14/2017 TECHNIQUE: Multiplanar multisequence MR imaging of thoracic spine was done without IV contrast using standard sequences. FINDINGS: Normal thoracic kyphosis is preserved. Again noted straightening along the anterior cortices with squaring of the thoracic vertebral bodies, a finding commonly seen in the setting of ankylosing spondylitis. Please note CT would be more sensitive modality to assess for thin bridging syndesmophytes. No evidence of osteitis or inflammatory enthesitis. No significant spondylolisthesis. Stable mild depression along the T2, T3, and T5 upper endplates with stable mild chronic height loss. No suspicious osseous lesions. There is minimal disc desiccation and mild disc height loss in the mid thoracic spine. No disc bulges or herniations. There is no significant spinal canal or neural foraminal stenosis at any level. The thoracic spinal cord is normal in signal and morphology. No epidural fluid collection, hematoma, or mass. No significant abnormalities of the paraspinal musculature. No demonstrated abnormalities in the visualized neck, thorax, or upper abdomen. The descending thoracic aorta is of normal contour and caliber. IMPRESSION: Again noted straightening along the anterior cortices with squaring of the thoracic vertebral bodies, a finding commonly seen in the setting of ankylosing spondylitis. Please note CT would be more sensitive modality to assess for thin bridging syndesmophytes. No evidence of osteitis or inflammatory enthesitis. No spinal canal or neural foraminal stenosis at any level Assessment & Plan Assessment & Plan (1) Ankylosing spondylitis: Code(s): M45.9 - Ankylosing spondylitis of unspecified sites in spine Qualifiers: Ankylosing spondylitis location: sacral region Qualified Code(s): M45.8 - Ankylosing spondylitis sacral and sacrococcygeal region Plan: Mr. Nguyen is very pleasant 47 years old gentleman who presents in my office with complains in upper thoracic back pain. History of ankylosing spondyloarthritis. History of epidural steroid injections with good results and no results from MBB of the thoracic spine. New MRI was obtained and untreated ankylosing spondylitis however no nerve root compressions no spinal canal stenosis therefore I do not think epidural steroid injections are indicated for him. MBB was not helping him in the past. 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 As soon as Dr. Kyle we will give us a clearance for administration of steroid with his [place]ia I will schedule him for trigger point injections in the office in between his shoulder blades in the projection of bilateral major and minor rhomboid muscle. (2) Osteoarthritis thoracic spine: Code(s): M47.814 - Spondylosis without myelopathy or radiculopathy, thoracic region Qualifiers: Spinal osteoarthritis complication: without myelopathy or radiculopathy Qualified Code(s): M47.814 - Spondylosis without myelopathy or radiculopathy, thoracic region (3) Medication monitoring encounter: Comment: Tramadol pain contract updated 10/24/2021 Code(s): Z51.81 - Encounter for therapeutic drug level monitoring Plan: Stable on tramadol 100 mg Twice daily (4) Chronic thoracic spine pain: Code(s): M54.6 - Pain in thoracic spine; G89.29 - Other chronic pain Plan I here by testify that I spent 45 minutes in conversation with this patient as well as evaluating his chart and organizing his note. Coding Level of Care Code Est Pt Level 3 (79987) Diagnoses Ankylosing spondylitis of sacral region M45.8 Ankylosing spondylitis location: sacral region Spondylosis of thoracic region without myelopathy or radiculopathy M47.814 Spinal osteoarthritis complication: without myelopathy or radiculopathy Medication monitoring encounter Z51.81 Chronic thoracic spine pain M54.6; G89.29
[2023-05-21 09:31] VITALS: BP 136/88; PULSE 80; RESP 14; O2SAT 99; BMI 26.7
== END 2023-05-21 09:48 | disposition home or self-care (01) ==
PROVIDERS: PCP Family Medicine; Visit Provider Anesthesiology
DX: M45.8 Ankylosing spondylitis sacral and sacrococcygeal region (principal); M47.814 Spondylosis without myelopathy or radiculopathy, thoracic region; Z51.81 Encounter for therapeutic drug level monitoring; M54.6 Pain in thoracic spine; G89.29 Other chronic pain
CPT/HCPCS: 99213

== ENCOUNTER → 2023-05-21 09:18 | Outpatient (BNVA) | payer OTHER, SELFPAY | PROVIDERS: Visit Provider Anesthesiology | DX: Z51.81 Encounter for therapeutic drug level monitoring (principal); M45.8 Ankylosing spondylitis sacral and sacrococcygeal region; M47.814 Spondylosis without myelopathy or radiculopathy, thoracic region; M54.6 Pain in thoracic spine; G89.29 Other chronic pain | CPT/HCPCS: 99212 ==

== ENCOUNTER 2023-06-04 08:17 | Outpatient (AMB) | payer OTHER, SELFPAY ==
--- NOTE | 2023-06-04 08:24 | MHC.OFFVIS ---
Vital Signs 06/04/23 08:33 Height 5 ft 7 in Weight 167 lb BMI 26.2 BP 122/74 Blood Pressure Location Lt brachial Position Sitting Respiration 16 Pulse 92 Pulse Source Pulse Oximeter Pulse Oximetry (%) 97 Oxygen Delivery Method Room Air Intake Visit Reasons: bilateral rhomboid muscles trigger point injection Intake Note: Patient comes in for trigger point injection. Reports pain 6/10. Allergies No Known Allergies Allergy (Verified 06/04/23 08:33) HPI Comments Details: Mr. Nguyen is back in my office to perform trigger point injections in his rhomboid muscles. The report of the procedure see as below. Our first leveler Dr. Kyle did not mind to perform the steroid injections, they are not interacting with anything he receives for his ankylosing spondylitis. His MRI is positive for spondylosis and ankylosing spondylitis. Medial branch block was discussed today. It could be technically difficult to perform medial branch block injections but I told him that I do not mind to try. I also explained to him that as a last resort I can offer him spinal cord stimulation if his pain is unbearable he can go for the trial for this. I also recommended him to go for physical therapy. I will order physical therapy at [facility]. I explained to him that physical therapy is effective only he continues home exercise program at least 3 to 4 times a day at least 15-20 minutes at a time. Prior: complains on pain in between his shoulder blades. He reports that this pain started 15 years ago. He does not know what caused the pain. He is under care of [facility] for the diagnosis of ankylosing spondylitis. He reports that he can not sleep normally because of his pain he can not do activities of daily living he can not take care of himself and he can not function normally. He is working full-time. He reports that heat applications aggravate his pain and cold applications and oral medication makes his pain better. The pain is worse in the morning and less severe during the day. He is receiving tramadol for pain control and Cimzia injection. She also taking fish oil turmeric and Naprosyn. He had CT scans of the lumbar spine which demonstrate significant advanced ankylosing changes. He also reports that medication he receives help his pain in the lower back but not in the thoracic spine. He reports in the past Dr. Kearney performed medial branch blocks for his thoracic spine which resulted in no improvement. Before that [facility] injected epidural steroids into him with good results for his pain. [facility] Medical History (Updated 04/09/23 @ 10:28 by Landon Barraza MD) Psoriasis Ankylosing spondylitis Surgical History Hx of lithotripsy Family History Father CVD (cardiovascular disease) Hypertension Mother Hypertension Social History Household Members: Spouse Housing: House Alcohol intake: never Patient Tobacco Use Status: Current everyday Tobacco user Tobacco use type: Smokeless Tobacco e-Cigarette/Vaping Use: Currently Using Current occupational status: employed Current occupation: [employer] Review of Systems Const All systems reviewed & are unremarkable except as noted in HPI and below ENT Reports Normal hearing present Neuro Reports Normal hearing present, Denies Abnormal speech present, Denies confusion and Denies Sensory deficit (Neuro) Psych Denies confusion Physical Exam Vital Signs: Last Vital Signs Pulse 92 06/04/23 08:33 Resp 16 06/04/23 08:33 BP 122/74 06/04/23 08:33 Pulse Ox 97 06/04/23 08:33 Oxygen Delivery Method Room Air 06/04/23 08:33 BMI result Body Mass Index 26.2 Const General: No confusion Nutritional Appearance: overweight Orientation/consciousness: No confusion Limitations: no limitations HEENT Head: Yes normocephalic and Yes atraumatic Mouth: moist mucous membranes Resp Effort & Inspection: normal respiratory effort and able to speak in complete sentences Auscultation: clear to auscultation bilaterally GI Inspection: No distended Palpation (GI): Soft to palpation and nontender Skin Other: Faint circular rashes on both shins Neuro General: No confusion Cranial nerves: Yes Normal hearing present Speech: No Abnormal speech present Sensory Exam: No Sensory deficit (Neuro) Extrem Other: No active peripheral synovitis Negative straight leg raise test, negative ELY test bilaterally Normal range of motion of neck Tenderness on palpation in the projection of the T2-T3 thoracic vertebra spinous processes. Assessment & Plan Assessment & Plan (1) Ankylosing spondylitis: Code(s): M45.9 - Ankylosing spondylitis of unspecified sites in spine Category: Medical Qualifiers: Ankylosing spondylitis location: sacral region Qualified Code(s): M45.8 - Ankylosing spondylitis sacral and sacrococcygeal region Plan: Mr. Nguyen is very pleasant 47 years old gentleman who presents in my office with complains in upper thoracic back pain. History of ankylosing spondyloarthritis. History of epidural steroid injections with good results and no results from MBB of the thoracic spine. New MRI was obtained and untreated ankylosing spondylitis however no nerve root compressions no spinal canal stenosis therefore I do not think epidural steroid injections are indicated for him. MBB was not helping him in the past. 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 We received permission from Dr. Kyle his first leveler to perform trigger point injections with steroids today. The patient was explained risks and benefits of the steroid administration. His situation is not very easy his condition is progressive and potentially debilitating in the future. (2) Osteoarthritis thoracic spine: Code(s): M47.814 - Spondylosis without myelopathy or radiculopathy, thoracic region Category: Medical Qualifiers: Spinal osteoarthritis complication: without myelopathy or radiculopathy Qualified Code(s): M47.814 - Spondylosis without myelopathy or radiculopathy, thoracic region Plan: (3) Chronic thoracic spine pain: Code(s): M54.6 - Pain in thoracic spine; G89.29 - Other chronic pain Category: Medical Plan: The patient was positioned prone on the examination table. The mid back was prepped with ChloraPrep. Sterilely obtained solution of bupivacaine 0.5% mixed with Kenalog 40 mg was injected at the right rhomboid muscle as well as at the left rhomboid muscle in fan-like fashion. Sterile Band-Aids were applied the patient tolerated procedure well. (4) Medication monitoring encounter: Comment: Tramadol pain contract updated 10/24/2021 Code(s): Z51.81 - Encounter for therapeutic drug level monitoring Category: Medical Plan: Stable on tramadol 100 mg Twice daily Orders: Orders PT Evaluation and Treatment Today G89.29 - Other chronic pain, M45.8 - Ankylosing spondylitis sacral and sacrococcygeal region, M47.814 - Spondylosis without myelopathy or radiculopathy, thoracic region, M54.6 - Pain in thoracic spine Patient Instructions: I here by testify that I spent 35 minutes in conversation with this patient as well as planning his care and organizing this note.
[2023-06-04 08:33] VITALS: BP 122/74; PULSE 92; RESP 16; O2SAT 97; BMI 26.2
== END 2023-06-04 09:08 | disposition home or self-care (01) ==
PROVIDERS: PCP Family Medicine; Visit Provider Anesthesiology
DX: M45.8 Ankylosing spondylitis sacral and sacrococcygeal region (principal); M47.814 Spondylosis without myelopathy or radiculopathy, thoracic region; M54.6 Pain in thoracic spine; G89.29 Other chronic pain; Z51.81 Encounter for therapeutic drug level monitoring
CPT/HCPCS: 20552; 99214

== ENCOUNTER → 2023-06-04 08:17 | Outpatient (BNVA) | payer OTHER, SELFPAY | PROVIDERS: Visit Provider Anesthesiology | DX: M45.8 Ankylosing spondylitis sacral and sacrococcygeal region (principal); M47.814 Spondylosis without myelopathy or radiculopathy, thoracic region; M54.6 Pain in thoracic spine; G89.29 Other chronic pain; Z79.899 Other long term (current) drug therapy; Z51.81 Encounter for therapeutic drug level monitoring | CPT/HCPCS: 20552; 99212; J0665; J3301 ==

== ENCOUNTER 2023-07-02 08:56 | Outpatient (REF) | payer OTHER, SELFPAY ==
[2023-07-02 09:20] LABS: MANUAL DIFF FLAG NO
[2023-07-02 09:30] LABS: Basophils Percent Auto 0.4 % (0-2); Eosinophils Absolute Auto 0.1 X10*3/uL (0.0-0.4); Eosinophils Percent Auto 2.1 % (0-4); Hematocrit 45.8 % (42.0-52.0); Hemoglobin 15.1 g/dl (14.0-18.0); Imm Gran Abs Auto 0.01 X10*3/uL (0.00-0.03); Imm Gran Pct Auto 0.2 % (0.0-0.4); Mean Corpuscular Volume 81.8 fL (80.0-98.0); Mean Platelet Volume 9.7 fL (9.4-12.4); Monocytes Absolute Auto 0.3 X10*3/uL (0.1-1.2); Monocytes Percent Auto 5.7 % (2-11); Neutrophils Absolute Auto 2.8 x10*3/uL (2.0-8.3); Neutrophils Percent Auto 52.6 % (45-73); Platelet Count 198 X10*3/uL (160-400); Red Cell Distribution Width 13.2 % (11.0-16.0); White Blood Count 5.2 X10*3/uL (4.8-10.8)
[2023-07-02 09:55] LABS: Alanine Aminotransferase 13 U/L (0-40); Albumin Level 4.5 g/dL (3.5-5.0); Alkaline Phosphatase 59 U/L (39-117); Anion Gap 14 (12-20); Aspartate Amino Transferase 10 U/L (5-37); Bilirubin Total 0.3 mg/dL (0.0-1.0); Blood Urea Nitrogen 19 mg/dL (9-16); C Reactive Protein 0.35 mg/dL (< or = 0.50); Calcium 9.7 mg/dL (8.4-10.2); Carbon Dioxide 29 mmol/L (22-29); Chloride 105 mmol/L (96-108); Estimated Glomerular Filt Rate > 60; Glucose Random 92 mg/dL (60-115); Potassium 4.8 mmol/L (3.3-5.1); Sodium 143 mmol/L (135-145); Total Protein 7.4 g/dL (6.5-8.0)
[2023-07-02 10:12] LABS: Erythrocyte Sedimentation Rate 2 MM/HR (0-15)
== END 2023-07-02 08:57 | disposition home or self-care (01) ==
LOC: HO.LAB 08:56
PROVIDERS: Visit Provider Student in an Organized Health Care Education/Training Program
DX: M45.8 Ankylosing spondylitis sacral and sacrococcygeal region (principal); M47.814 Spondylosis without myelopathy or radiculopathy, thoracic region; L21.0 Seborrhea capitis; Z51.81 Encounter for therapeutic drug level monitoring
CPT/HCPCS: 36415; 80053; 85025; 85652; 86140; 99212

== ENCOUNTER 2023-07-02 09:45 | Outpatient (AMB) | payer OTHER, SELFPAY ==
--- NOTE | 2023-07-02 10:03 | MHC.OFFVIS ---
Vital Signs 07/02/23 10:10 Height 5 ft 7 in Weight 168 lb 10.458 oz BMI 26.4 BP 114/66 Blood Pressure Location Rt brachial Position Sitting Pulse 76 Pulse Source Pulse Oximeter Pulse Oximetry (%) 98 Oxygen Delivery Method Room Air Intake Visit Reasons: Intake Note: Patient last seen 02/26/23 presents today for follow up and test results. 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 On Cimzia regularly. He was evaluated by pain management and his thoracic back pain was thought to be related to muscle spasm. He received will trigger point injection which gave him relief for about a week. States that he continues to have upper back pain and only thing that helps is the tramadol. He tried lowering the tramadol does but could not tolerate it. Continues to take tramadol 100 mg Twice daily. States that he tried muscle relaxants in the past which caused some dizziness/lightheadedness. Tried using OTC CBD oil which also provides some relief. Psoriasis rash improving. States that he gets intermittent dandruff and would like ketoconazole shampoo Most recent history by Dr. Miller 12/2022: The patient presents with his for evaluation of his ankylosing spondylitis. We had switched him from Enbrel to Cimzia because of continued upper back pains. His lower back pain has not been present for quite some time since starting the Enbrel. He has a skin lesion on the right leg that was thought to be psoriasis. That is slowly fading with some topical treatment from a mental health aides teacher. However the upper back pains seem to continue, he thinks they may be a little bit less significant. He does get help taking 100 mg of tramadol, he has the 50 mg tablets, twice a day. They do not seem to make him sedated or constipated. He has not had any side effect with the Cimzia. There has been no eye inflammation, oral ulcers, shortness of breath, cough or other skin rash. He notes the back pain isn't that noticeable when he is very active but when he sits for long time or lies down at night it seems to bother him. He does recall having received the injection in the past at [facility] that helped him for 3 months. He apparently did see another sales representative supervisor who also injected the back but the improvement did not return. PFSH Medical History Psoriasis Ankylosing spondylitis Surgical History Hx of lithotripsy Family History Father CVD (cardiovascular disease) Hypertension Mother Hypertension Social History Household Members: Spouse Housing: House Alcohol intake: never Patient Tobacco Use Status: Current everyday Tobacco user Tobacco use type: Smokeless Tobacco e-Cigarette/Vaping Use: Currently Using Current occupational status: employed Current occupation: [employer] Reports back pain Skin/Breast Reports rash Physical Exam Vital Signs: Last Vital Signs Pulse 76 07/02/23 10:10 BP 114/66 07/02/23 10:10 Pulse Ox 98 07/02/23 10:10 Oxygen Delivery Method Room Air 07/02/23 10:10 BMI result Body Mass Index 26.4 Const General: cooperative, healthy appearing and comfortable Nutritional Appearance: overweight Orientation/consciousness: patient oriented x3 Limitations: no limitations HEENT Head: Yes normocephalic and Yes atraumatic Mouth: moist mucous membranes Resp Effort & Inspection: normal respiratory effort and able to speak in complete sentences Auscultation: clear to auscultation bilaterally Cardio Rate: regular rate Rhythm: regular rhythm GI Inspection: No distended Palpation (GI): Soft to palpation and nontender Skin Other: Faint circular rashes on both shins Neuro General: patient oriented x3 Extrem Other: No active peripheral synovitis Sheila test 10-14.2 cm Negative straight leg raise test, negative ELY test bilaterally Normal range of motion of neck Results Reviewed Results Reviewed: MR THORACIC SPINE WITHOUT CONTRAST CLINICAL INFORMATION: Ankylosing spondylitis, interscapular pain COMPARISON: MRI thoracic spine 05/14/2017 TECHNIQUE: Multiplanar multisequence MR imaging of thoracic spine was done without IV contrast using standard sequences. FINDINGS: Normal thoracic kyphosis is preserved. Again noted straightening along the anterior cortices with squaring of the thoracic vertebral bodies, a finding commonly seen in the setting of ankylosing spondylitis. Please note CT would be more sensitive modality to assess for thin bridging syndesmophytes. No evidence of osteitis or inflammatory enthesitis. No significant spondylolisthesis. Stable mild depression along the T2, T3, and T5 upper endplates with stable mild chronic height loss. No suspicious osseous lesions. There is minimal disc desiccation and mild disc height loss in the mid thoracic spine. No disc bulges or herniations. There is no significant spinal canal or neural foraminal stenosis at any level. The thoracic spinal cord is normal in signal and morphology. No epidural fluid collection, hematoma, or mass. No significant abnormalities of the paraspinal musculature. No demonstrated abnormalities in the visualized neck, thorax, or upper abdomen. The descending thoracic aorta is of normal contour and caliber. IMPRESSION: Again noted straightening along the anterior cortices with squaring of the thoracic vertebral bodies, a finding commonly seen in the setting of ankylosing spondylitis. Please note CT would be more sensitive modality to assess for thin bridging syndesmophytes. No evidence of osteitis or inflammatory enthesitis. No spinal canal or neural foraminal stenosis at any level Assessment & Plan Assessment & Plan (1) Ankylosing spondylitis: Comment: dx 2016 bilateral sacroiliitis high inflammatory markers -ve HLA b27 Humira 2017-improved low back pain, no improvement thoracic back pain. Enbrel 10/2016- 11/2022 (similar effect) changed to Cimzia (11/2022 similar effects) Code(s): M45.9 - Ankylosing spondylitis of unspecified sites in spine Category: Medical Qualifiers: Ankylosing spondylitis location: sacral region Qualified Code(s): M45.8 - Ankylosing spondylitis sacral and sacrococcygeal region Plan: 47-year-old male with ankylosing spondylitis returns for follow-up. On Cimzia 200 mg every other week. His ankylosing spondylitis is well controlled but he continues to have upper thoracic spinal pain which is likely due to muscle spasm versus osteoarthritis. He was evaluated by pain management and received trigger point injections which were not helpful. Continue with Cimzia 200 mg every other week. Labs before next visit in 6 months (2) Osteoarthritis thoracic spine: Code(s): M47.814 - Spondylosis without myelopathy or radiculopathy, thoracic region Category: Medical Qualifiers: Spinal osteoarthritis complication: without myelopathy or radiculopathy Qualified Code(s): M47.814 - Spondylosis without myelopathy or radiculopathy, thoracic region Plan: Methocarbamol trial. (3) Medication monitoring encounter: Comment: Tramadol pain contract updated 10/24/2021 Code(s): Z51.81 - Encounter for therapeutic drug level monitoring Category: Medical Plan: Stable on tramadol 100 mg Twice daily (4) Dandruff: Code(s): L21.0 - Seborrhea capitis Category: Medical Plan: Prescribed ketoconazole shampoo Plan I spent 25 minutes reviewing patient's chart, evaluating patient, ordering diagnostic workup, counseling patient and documenting in the chart Orders: Orders Complete Blood Count Auto Diff 6 Months M45.8 - Ankylosing spondylitis sacral and sacrococcygeal region Comprehensive Met. Panel 6 Months M45.8 - Ankylosing spondylitis sacral and sacrococcygeal region C Reactive Protein 6 Months M45.8 - Ankylosing spondylitis sacral and sacrococcygeal region Erythrocyte Sedimentation Rate 6 Months M45.8 - Ankylosing spondylitis sacral and sacrococcygeal region Medications: New methocarbamol 500 mg PO BEDTIME PRN 15 tabs 1RF muscle spasm ketoconazole 2% 1 appl topical 2XW 120 mL 1RF Coding Level of Care Code Est Pt Level 4 (59009) Diagnoses Ankylosing spondylitis of sacral region M45.8 Ankylosing spondylitis location: sacral region Spondylosis of thoracic region without myelopathy or radiculopathy M47.814 Spinal osteoarthritis complication: without myelopathy or radiculopathy Medication monitoring encounter Z51.81 Dandruff L21.0
[2023-07-02 10:10] VITALS: BP 114/66; PULSE 76; O2SAT 98; BMI 26.4
== END 2023-07-02 10:37 | disposition home or self-care (01) ==
PROVIDERS: PCP Family Medicine; Visit Provider Student in an Organized Health Care Education/Training Program
DX: M45.8 Ankylosing spondylitis sacral and sacrococcygeal region (principal); M47.814 Spondylosis without myelopathy or radiculopathy, thoracic region; Z51.81 Encounter for therapeutic drug level monitoring; L21.0 Seborrhea capitis
CPT/HCPCS: 99214

== ENCOUNTER 2024-01-11 07:35 | Outpatient (REF) | payer OTHER, SELFPAY ==
[2024-01-11 08:00] LABS: MANUAL DIFF FLAG NO
[2024-01-11 08:51] LABS: Basophils Percent Auto 0.2 % (0-2); Eosinophils Absolute Auto 0.1 X10*3/uL (0.0-0.4); Eosinophils Percent Auto 1.4 % (0-4); Hematocrit 46.4 % (42.0-52.0); Hemoglobin 15.4 g/dl (14.0-18.0); Imm Gran Abs Auto 0.02 X10*3/uL (0.00-0.03); Imm Gran Pct Auto 0.4 % (0.0-0.4); Lymphocytes Absolute Auto 2.2 X10*3/uL (1.2-4.9); Lymphocytes Percent Auto 39.4 % (20-40); Mean Corpuscular HGB Conc 33.2 g/dl (31.0-36.0); Mean Corpuscular Hemoglobin 27.1 pg (27.0-33.0); Mean Corpuscular Volume 81.5 fL (80.0-98.0); Mean Platelet Volume 10.1 fL (9.4-12.4); Monocytes Absolute Auto 0.3 X10*3/uL (0.1-1.2); Monocytes Percent Auto 5.2 % (2-11); Neutrophils Percent Auto 53.4 % (45-73); Platelet Count 252 X10*3/uL (160-400); Red Blood Count 5.69 X10*6/uL (4.60-5.80); Red Cell Distribution Width 12.9 % (11.0-16.0); White Blood Count 5.6 X10*3/uL (4.8-10.8)
[2024-01-11 09:31] LABS: Erythrocyte Sedimentation Rate 2 MM/HR (0-15)
[2024-01-11 09:37] LABS: Alanine Aminotransferase 27 U/L (0-40); Albumin Level 4.6 g/dL (3.5-5.0); Alkaline Phosphatase 54 U/L (39-117); Anion Gap 13 (12-20); Aspartate Amino Transferase 17 U/L (5-37); Bilirubin Total 0.3 mg/dL (0.0-1.0); Blood Urea Nitrogen 13 mg/dL (9-16); C Reactive Protein 0.44 mg/dL (< or = 0.50); Calcium 9.1 mg/dL (8.4-10.2); Carbon Dioxide 25 mmol/L (22-29); Chloride 107 mmol/L (96-108); Estimated Glomerular Filt Rate > 60; Glucose Random 121 mg/dL (60-115); Potassium 3.9 mmol/L (3.3-5.1); Sodium 141 mmol/L (135-145); Total Protein 7.3 g/dL (6.5-8.0)
== END 2024-01-11 07:36 | disposition home or self-care (01) ==
LOC: HO.LAB 07:35
PROVIDERS: Visit Provider Student in an Organized Health Care Education/Training Program
DX: M45.8 Ankylosing spondylitis sacral and sacrococcygeal region (principal)
CPT/HCPCS: 36415; 80053; 85025; 85652; 86140

== ENCOUNTER 2024-01-14 12:39 | Outpatient (AMB) | payer OTHER, SELFPAY ==
--- NOTE | 2024-01-14 12:53 | MHC.OFFVIS ---
Vital Signs 01/14/24 12:55 Height 5 ft 7 in Weight 162 lb 7.691 oz BMI 25.4 BP 115/64 Blood Pressure Location Rt brachial Position Sitting Respiration 16 Pulse 81 Pulse Source Pulse Oximeter Pulse Oximetry (%) 98 Oxygen Delivery Method Room Air Intake Visit Reasons: /CM Intake Note: Patient presents for . Allergies No Known Allergies Allergy (Verified 01/14/24 12:55) Medication List - Last Reconciled 01/14/24 by Emily Rosado MD certolizumab pegol (Cimzia) 200 mg subcut Q2W clotrimazole-betamethasone 1-0.05 % appl topical ketoconazole 2% 1 appl topical 2XW methocarbamol 500 mg PO BEDTIME PRN naproxen 500 mg PO BID PRN tramadol 100 mg (2 x 50 mg) PO BID PRN HPI Comments Details: 48-year-old male with ankylosing spondylitis returns for follow-up. On Cimzia regularly. He states that he is doing about the same overall. Continues to have intermittent low back pain. Continues to require 200 mg of tramadol in total daily. Most recent history by Dr. Miller 12/2022: The patient presents with his for evaluation of his ankylosing spondylitis. We had switched him from Enbrel to Cimzia because of continued upper back pains. His lower back pain has not been present for quite some time since starting the Enbrel. He has a skin lesion on the right leg that was thought to be psoriasis. That is slowly fading with some topical treatment from a nurse receptionist. However the upper back pains seem to continue, he thinks they may be a little bit less significant. He does get help taking 100 mg of tramadol, he has the 50 mg tablets, twice a day. They do not seem to make him sedated or constipated. He has not had any side effect with the Cimzia. There has been no eye inflammation, oral ulcers, shortness of breath, cough or other skin rash. He notes the back pain isn't that noticeable when he is very active but when he sits for long time or lies down at night it seems to bother him. He does recall having received the injection in the past at [facility] that helped him for 3 months. He apparently did see another donor recruiter who also injected the back but the improvement did not return. [facility] Medical History Psoriasis Ankylosing spondylitis Surgical History Hx of lithotripsy Family History Father CVD (cardiovascular disease) Hypertension Mother Hypertension Social History Household Members: Spouse Housing: House Alcohol intake: never Patient Tobacco Use Status: Current everyday Tobacco user Tobacco use type: Smokeless Tobacco e-Cigarette/Vaping Use: Currently Using Current occupational status: employed Current occupation: [employer] Reports back pain Physical Exam Vital Signs: Last Vital Signs Pulse 81 01/14/24 12:55 Resp 16 01/14/24 12:55 BP 115/64 01/14/24 12:55 Pulse Ox 98 01/14/24 12:55 Oxygen Delivery Method Room Air 01/14/24 12:55 BMI result Body Mass Index 25.4 Const General: cooperative, healthy appearing and comfortable Nutritional Appearance: overweight Orientation/consciousness: patient oriented x3 Limitations: no limitations HEENT Head: Yes normocephalic and Yes atraumatic Mouth: moist mucous membranes Resp Effort & Inspection: normal respiratory effort and able to speak in complete sentences Auscultation: clear to auscultation bilaterally Cardio Rate: regular rate Rhythm: regular rhythm GI Inspection: No distended Palpation (GI): Soft to palpation and nontender Neuro General: patient oriented x3 Extrem Other: No active peripheral synovitis Sheila test 10-15 cm Negative straight leg raise test, negative ELY test bilaterally Normal range of motion of neck Results Reviewed Results Reviewed: MR THORACIC SPINE WITHOUT CONTRAST CLINICAL INFORMATION: Ankylosing spondylitis, interscapular pain COMPARISON: MRI thoracic spine 05/14/2017 TECHNIQUE: Multiplanar multisequence MR imaging of thoracic spine was done without IV contrast using standard sequences. FINDINGS: Normal thoracic kyphosis is preserved. Again noted straightening along the anterior cortices with squaring of the thoracic vertebral bodies, a finding commonly seen in the setting of ankylosing spondylitis. Please note CT would be more sensitive modality to assess for thin bridging syndesmophytes. No evidence of osteitis or inflammatory enthesitis. No significant spondylolisthesis. Stable mild depression along the T2, T3, and T5 upper endplates with stable mild chronic height loss. No suspicious osseous lesions. There is minimal disc desiccation and mild disc height loss in the mid thoracic spine. No disc bulges or herniations. There is no significant spinal canal or neural foraminal stenosis at any level. The thoracic spinal cord is normal in signal and morphology. No epidural fluid collection, hematoma, or mass. No significant abnormalities of the paraspinal musculature. No demonstrated abnormalities in the visualized neck, thorax, or upper abdomen. The descending thoracic aorta is of normal contour and caliber. IMPRESSION: Again noted straightening along the anterior cortices with squaring of the thoracic vertebral bodies, a finding commonly seen in the setting of ankylosing spondylitis. Please note CT would be more sensitive modality to assess for thin bridging syndesmophytes. No evidence of osteitis or inflammatory enthesitis. No spinal canal or neural foraminal stenosis at any level Assessment & Plan Assessment & Plan (1) Ankylosing spondylitis: Comment: dx 2017 bilateral sacroiliitis high inflammatory markers -ve HLA b27 Humira 2017-improved low back pain, no improvement thoracic back pain. Enbrel 10/2016- 11/2022 (similar effect) changed to Cimzia (11/2022 similar effects) Code(s): M45.9 - Ankylosing spondylitis of unspecified sites in spine Category: Medical Qualifiers: Ankylosing spondylitis location: sacral region Qualified Code(s): M45.8 - Ankylosing spondylitis sacral and sacrococcygeal region Plan: 48-year-old male with ankylosing spondylitis returns for follow-up. On Cimzia 200 mg every other week. His ankylosing spondylitis is well controlled but he continues to have upper thoracic spinal pain which is likely due to muscle spasm versus osteoarthritis. He was evaluated by pain management and received trigger point injections which were not helpful. Continue with Cimzia 200 mg every other week. Labs before next visit in 6 months (2) Osteoarthritis thoracic spine: Code(s): M47.814 - Spondylosis without myelopathy or radiculopathy, thoracic region Category: Medical Qualifiers: Spinal osteoarthritis complication: without myelopathy or radiculopathy Qualified Code(s): M47.814 - Spondylosis without myelopathy or radiculopathy, thoracic region (3) Medication monitoring encounter: Comment: Tramadol pain contract updated 10/24/2021 Code(s): Z51.81 - Encounter for therapeutic drug level monitoring Category: Medical Plan: Stable on tramadol 100 mg Twice daily Plan I spent 25 minutes reviewing patient's chart, evaluating patient, ordering diagnostic workup, counseling patient and documenting in the chart Orders: Orders Complete Blood Count Auto Diff 6 Months M45.8 - Ankylosing spondylitis sacral and sacrococcygeal region C Reactive Protein 6 Months M45.8 - Ankylosing spondylitis sacral and sacrococcygeal region Hepatitis A,B,C Profile 6 Months Z11.59 - Encounter for screening for other viral diseases T Spot TB 6 Months Z11.59 - Encounter for screening for other viral diseases Comprehensive Met. Panel 6 Months M45.8 - Ankylosing spondylitis sacral and sacrococcygeal region Erythrocyte Sedimentation Rate 6 Months M45.8 - Ankylosing spondylitis sacral and sacrococcygeal region Medications: Changed From tramadol 50 mg PO BID PRN 60 tabs 3RF pain M45.8 - Ankylosing spondylitis sacral and sacrococcygeal region To tramadol 100 mg (2 x 50 mg) PO BID PRN 120 tabs 5RF pain M45.8 - Ankylosing spondylitis sacral and sacrococcygeal region Discontinued methocarbamol Discontinued Reason: Patient Completed Course 500 mg PO BEDTIME PRN 15 tabs 1RF muscle spasm Coding Level of Care Code Est Pt Level 4 (22487) Complex EM visit Add On G2211 Diagnoses Ankylosing spondylitis of sacral region M45.8 Ankylosing spondylitis location: sacral region Spondylosis of thoracic region without myelopathy or radiculopathy M47.814 Spinal osteoarthritis complication: without myelopathy or radiculopathy Medication monitoring encounter Z51.81
[2024-01-14 12:55] VITALS: BP 115/64; PULSE 81; RESP 16; O2SAT 98; BMI 25.4
== END 2024-01-14 13:33 | disposition home or self-care (01) ==
PROVIDERS: PCP Family Medicine; Visit Provider Student in an Organized Health Care Education/Training Program
DX: M45.8 Ankylosing spondylitis sacral and sacrococcygeal region (principal); M47.814 Spondylosis without myelopathy or radiculopathy, thoracic region; Z51.81 Encounter for therapeutic drug level monitoring
CPT/HCPCS: 99214; G2211

== ENCOUNTER → 2024-01-14 12:39 | Outpatient (BNVA) | payer OTHER, SELFPAY | PROVIDERS: PCP Family Medicine; Visit Provider Student in an Organized Health Care Education/Training Program | DX: M45.8 Ankylosing spondylitis sacral and sacrococcygeal region (principal); M47.814 Spondylosis without myelopathy or radiculopathy, thoracic region; Z51.81 Encounter for therapeutic drug level monitoring | CPT/HCPCS: 99212 ==

== ENCOUNTER 2024-07-14 09:12 | Outpatient (REF) | payer OTHER, SELFPAY ==
[2024-07-14 09:27] LABS: MANUAL DIFF FLAG NO
[2024-07-14 10:17] LABS: Basophils Percent Auto 0.2 % (0-2); Eosinophils Absolute Auto 0.2 X10*3/uL (0.0-0.4); Eosinophils Percent Auto 3.7 % (0-4); Hematocrit 43.8 % (42.0-52.0); Imm Gran Abs Auto 0.01 X10*3/uL (0.00-0.03); Imm Gran Pct Auto 0.2 % (0.0-0.4); Lymphocytes Absolute Auto 2.3 X10*3/uL (1.2-4.9); Lymphocytes Percent Auto 49.7 % (20-40); Mean Corpuscular HGB Conc 34.2 g/dl (31.0-36.0); Mean Corpuscular Hemoglobin 27.1 pg (27.0-33.0); Mean Corpuscular Volume 79.1 fL (80.0-98.0); Mean Platelet Volume 10.2 fL (9.4-12.4); Monocytes Absolute Auto 0.3 X10*3/uL (0.1-1.2); Monocytes Percent Auto 7.4 % (2-11); Neutrophils Absolute Auto 1.8 x10*3/uL (2.0-8.3); Neutrophils Percent Auto 38.8 % (45-73); Platelet Count 226 X10*3/uL (160-400); Red Blood Count 5.54 X10*6/uL (4.60-5.80); Red Cell Distribution Width 13.1 % (11.0-16.0); White Blood Count 4.6 X10*3/uL (4.8-10.8)
[2024-07-14 10:56] LABS: Erythrocyte Sedimentation Rate 2 MM/HR (0-15)
[2024-07-14 11:12] LABS: Alanine Aminotransferase 25 U/L (0-40); Albumin Level 4.8 g/dL (3.5-5.0); Alkaline Phosphatase 56 U/L (39-117); Anion Gap 12 (12-20); Aspartate Amino Transferase 18 U/L (5-37); Bilirubin Total 0.6 mg/dL (0.0-1.0); Blood Urea Nitrogen 14 mg/dL (9-16); C Reactive Protein 0.45 mg/dL (< or = 0.50); Calcium 9.3 mg/dL (8.4-10.2); Carbon Dioxide 28 mmol/L (22-29); Chloride 105 mmol/L (96-108); Estimated Glomerular Filt Rate > 60; Glucose Random 102 mg/dL (60-115); Potassium 4.4 mmol/L (3.3-5.1); Sodium 141 mmol/L (135-145); Total Protein 7.3 g/dL (6.5-8.0)
[2024-07-14 11:17] LABS: HBS Num1 0.21 mIU/mL (0-7.99); HBc Num1 0.06 S/CO (0.00-0.79); HBsAGNum1 0.32 S/CO (0.00-0.99); Hepatitis A Antibody IgM 0.32 Index (0-0.79); Hepatitis B Core Antibody Nonreactive (Nonreactive); Hepatitis B Surface Antigen Negative (Negative); ~HepC Num1 0.12 S/CO (0.00-0.79); ~Hepatitis A Antibody IgM Nonreactive (Nonreactive); ~Hepatitis B Surface Antibody NONREACTIVE (Nonreactive); ~Hepatitis C Antibody Nonreactive (Nonreactive)
[2024-07-16 22:23] LABS: TS Negative Control Passed; TS Panel A 0; TS Panel B 0; TS Positive Control Passed; TSpotTB Negative (Negative)
== END 2024-07-14 09:13 | disposition home or self-care (01) ==
LOC: HO.LAB 09:12
PROVIDERS: Visit Provider Student in an Organized Health Care Education/Training Program
DX: M45.8 Ankylosing spondylitis sacral and sacrococcygeal region (principal); Z11.59 Encounter for screening for other viral diseases
CPT/HCPCS: 36415; 80053; 85025; 85652; 86140; 86481; 86704; 86706; 86709; 86803; 87340

== ENCOUNTER 2024-07-15 07:25 | Outpatient (AMB) | payer OTHER, SELFPAY ==
--- NOTE | 2024-07-15 07:27 | MHC.OFFVIS ---
Vital Signs 07/15/24 07:31 Height 5 ft 7 in Weight 171 lb 8.314 oz BMI 26.9 BP 115/62 Blood Pressure Location Lt brachial Position Sitting Pulse 97 Pulse Source Pulse Oximeter Pulse Oximetry (%) 98 Oxygen Delivery Method Room Air Intake Visit Reasons: Intake Note: Patient presents for follow up. Allergies No Known Allergies Allergy (Verified 07/15/24 07:31) Medication List - Last Reconciled 07/15/24 by Shasha Melgar MD certolizumab pegol (Cimzia) 200 mg subcut Q2W clotrimazole-betamethasone 1-0.05 % appl topical ketoconazole 2% 1 appl topical 2XW naproxen 500 mg PO BID PRN tramadol 100 mg (2 x 50 mg) PO BID PRN HPI Comments Details: Patient is a 49-year-old male with ankylosing spondylitis here today for follow up Interval History: Patient last seen 01/14/[address] Rosado. At that time he was following up for his ankylosing spondylitis on Cimzia and tramadol for his spinal osteoarthritis/degenerative disease. He was doing well with no new complaints Today, Patient reports he continues to do well. Unfortunately his tramadol ran out a few days before the appointment and he was unable to get any refills. Since being off the tramadol he has noticed worsening thoracic pain and also experience what he feels are withdrawal symptoms: Feeling feverish, myalgias and sweating. He is concerned about the effectiveness of this medication since he has been on tramadol for the past 15 years however no other anti-inflammatories such as Tylenol or NSAIDs help with his pain. Rheumatologic History: dx 2016 bilateral sacroiliitis high inflammatory markers -ve HLA b27 Humira 2017-improved low back pain, no improvement thoracic back pain. Enbrel 10/2016- 11/2022 (similar effect) changed to Cimzia (11/2022 similar effects) Current Rheumatology Medication(s): Tramadol 100mg bid Cimzia 200mg SC every 2 weeks PFSH Medical History Psoriasis Ankylosing spondylitis Surgical History Hx of lithotripsy Family History Father CVD (cardiovascular disease) Hypertension Mother Hypertension Social History Household Members: Spouse Housing: House Alcohol intake: never Patient Tobacco Use Status: Current everyday Tobacco user Tobacco use type: Smokeless Tobacco e-Cigarette/Vaping Use: Currently Using Current occupational status: employed Current occupation: [employer] Review of Systems Const Details: Review of Systems Constitutional: Denies fever, chills, weight loss ENT: Denies vision changes, eye pain or eye redness, dental caries, dry mouth GI: Denies nausea, vomiting, diarrhea, abdominal pain, change in BM Pulm: Denies SOB, RILEY, hemoptysis, wheezing Cards: Denies chest pain, palpitations Skin: Denies Raynaud's, rash, nail changes, photosensitivity, [employer]: Denies headaches, weakness, paresthesias, recurrent falls MSK: as per HPI All other systems reviewed and are unremarkable except noted above Physical Exam Vital Signs: Last Vital Signs Pulse 97 07/15/24 07:31 BP 115/62 07/15/24 07:31 Pulse Ox 98 07/15/24 07:31 Oxygen Delivery Method Room Air 07/15/24 07:31 BMI result Body Mass Index 26.9 Vital signs reviewed Physical Examination CONSTITUITIONAL Patient alert and cooperative. Well appearing and in no apparent painful distress HEENT Conjunctiva and sclera clear. ?Pupils equal round and reactive to light. ?No lymphadenopathy. ? CHEST/RESPIRATORY SYSTEM Normal respiratory effort and able to speak in complete sentences. ?Clear to auscultation bilaterally. ?No crackles, rales, rhonchi, wheezes heard. CARDIAC SYSTEM Regular rate and rhythm. ?S1 and S2 heard no murmurs. ?Radial pulses intact bilaterally MSK Hands: ?Able to make a fist. No synovitis noted to the MCPs, PIPs or DIPs. ?No tenderness to palpation of these joints. No deformities noted. ? Wrists: ?Full range of motion at the wrists without pain. ?No tenderness to palpation or synovitis noted to the wrists. Elbows: Full range of motion without pain. No tenderness, weakness, swelling, increased warmth or erythema. Shoulders: Full range of active range of motion without pain. No tenderness, weakness, swelling, increased warmth or erythema. Knees: ?Full range of motion. ?No tenderness, swelling, increased warmth or erythema.?No effusion or crepitations Ankles: Full range of motion. ?No tenderness, swelling, increased warmth or erythema.? Feet: ?Negative squeeze test. ?No tenderness to palpation or swelling of the MTPs. Tender points:?No tenderness to palpation of the bilateral trapezius, supraspinatus, greater trochanters, anterior costochondral junctions, bilateral gluteal areas, bilateral suboccipital muscle insertions Reduced mobility on modified Schobers test SKIN Skin intact without rashes. Results Reviewed Results Reviewed: Laboratory Tests 07/14/24 09:25 WBC 4.6 L RBC 5.54 Hgb 15.0 Hct 43.8 Plt Count 226 ESR 2 Sodium 141 Potassium 4.4 Chloride 105 Carbon Dioxide 28 BUN 14 Creatinine 0.85 AST 18 ALT 25 Alkaline Phosphatase 56 C-Reactive Protein 0.45 Total Protein 7.3 Albumin 4.8 Infectious Serologies 09/25/22 07/14/24 13:04 09:25 Hepatitis A IgM Ab Nonreactive Hep Bs Antigen Negative Hep Bs Antibody NONREACTIVE Hep B Core Total Ab Nonreactive Hepatitis C Ab (EIA) Nonreactive TB Test (T-Spot) Com Negative Pending MR T spine 04/2023 FINDINGS: Normal thoracic kyphosis is preserved. Again noted straightening along the anterior cortices with squaring of the thoracic vertebral bodies, a finding commonly seen in the setting of ankylosing spondylitis. Please note CT would be more sensitive modality to assess for thin bridging syndesmophytes. No evidence of osteitis or inflammatory enthesitis. No significant spondylolisthesis. Stable mild depression along the T2, T3, and T5 upper endplates with stable mild chronic height loss. No suspicious osseous lesions. There is minimal disc desiccation and mild disc height loss in the mid thoracic spine. No disc bulges or herniations. There is no significant spinal canal or neural foraminal stenosis at any level. The thoracic spinal cord is normal in signal and morphology. No epidural fluid collection, hematoma, or mass. No significant abnormalities of the paraspinal musculature. No demonstrated abnormalities in the visualized neck, thorax, or upper abdomen. The descending thoracic aorta is of normal contour and caliber. IMPRESSION: Again noted straightening along the anterior cortices with squaring of the thoracic vertebral bodies, a finding commonly seen in the setting of ankylosing spondylitis. Please note CT would be more sensitive modality to assess for thin bridging syndesmophytes. No evidence of osteitis or inflammatory enthesitis. No spinal canal or neural foraminal stenosis at any level. Assessment & Plan Assessment & Plan (1) Ankylosing spondylitis: Comment: dx 2017 bilateral sacroiliitis high inflammatory markers -ve HLA b27 Humira 2017-improved low back pain, no improvement thoracic back pain. Enbrel 10/2016- 11/2022 (similar effect) changed to Cimzia (11/2022 similar effects) Code(s): M45.9 - Ankylosing spondylitis of unspecified sites in spine Category: Medical Qualifiers: Ankylosing spondylitis location: sacral region Qualified Code(s): M45.8 - Ankylosing spondylitis sacral and sacrococcygeal region Plan: #Ankylosing spondylitis Patient is a 49-year-old male with ankylosing spondylitis. Currently in remission on Cimzia 200 mg every other week as evidenced by lack of thoracic back pain and normal inflammatory markers. Currently complaining of thoracic type back pain which based on imaging is likely secondary to degenerative joint disease which responds well to tramadol. We will refill his medications. Patient inquired about other non narcotic medications to help with his pain and I discussed with him the use of Tylenol and ibuprofen and other NSAIDs. Patient says unfortunately these medications do not help with his pain. I explained to him that tramadol is 1 of the least addicting narcotic medications and we are okay to continue this since he has been on it for 15 years. He was concerned because sometimes he goes to [place] and tramadol is illegal in [place] and he can be put into [facility] for this so when he is visiting his family he can not take his tramadol. I discussed that during those times he could try high-dose ibuprofen 800 mg 3 times a day to see if would help with some of his pain. Plan - Cimzia 200mg SC every 2 weeks - Tramadol 100mg bid - RTC 6 months - Labs before visit: CBC, CMP, ESR, CRP (2) Encounter for monitoring certolizumab therapy: Code(s): Z51.81 - Encounter for therapeutic drug level monitoring; Z79.620 - custodial (current) use of immunosuppressive biologic Plan: #Long-term Use of TNF Inhibitors: Cimzia Discussed with the patient the benefits and risks of TNF inhibitors for the management of the rheumatic condition Benefits include reduce pain, maintenance of remission and reduction of flares as well as ?progression of the disease Risks include injection sites/infusion reactions, serious infections (such as bacterial infections, opportunistic infections), malignancy, delaminating syndromes, autoimmune phenomena, CHF exacerbations, palmar plantar psoriasis and cytopenias Recommended rotating injection sites, and holding medication during and for up to 1 week after resolution of a febrile illness or open skin wound Plan I spent 30 minutes reviewing the record and labs, taking a history, examining the patient, discussing the treatment plan, answering questions, ordering diagnostic work up and documenting in the medical record Orders: Orders Comprehensive Met. Panel 6 Months M45.8 - Ankylosing spondylitis sacral and sacrococcygeal region Erythrocyte Sedimentation Rate 6 Months M45.8 - Ankylosing spondylitis sacral and sacrococcygeal region Complete Blood Count Auto Diff 6 Months M45.8 - Ankylosing spondylitis sacral and sacrococcygeal region C Reactive Protein 6 Months M45.8 - Ankylosing spondylitis sacral and sacrococcygeal region Medications: Refilled tramadol 100 mg (2 x 50 mg) PO BID PRN 120 tabs 5RF pain M45.8 - Ankylosing spondylitis sacral and sacrococcygeal region certolizumab pegol (Cimzia) 200 mg subcut Q2W 2 ea 5RF M45.8 - Ankylosing spondylitis sacral and sacrococcygeal region Coding Level of Care Code Est Pt Level 4 (38395) Complex EM visit Add On G2211 Diagnoses Ankylosing spondylitis of sacral region M45.8 Ankylosing spondylitis location: sacral region Encounter for monitoring certolizumab therapy Z51.81; Z79.620
[2024-07-15 07:31] VITALS: BP 115/62; PULSE 97; O2SAT 98; BMI 26.9
== END 2024-07-15 08:02 | disposition home or self-care (01) ==
LOC: HO.RHE 07:26
PROVIDERS: PCP Family Medicine; Visit Provider Student in an Organized Health Care Education/Training Program
DX: M45.8 Ankylosing spondylitis sacral and sacrococcygeal region (principal); Z51.81 Encounter for therapeutic drug level monitoring; Z79.620 Long term (current) use of immunosuppressive biologic
CPT/HCPCS: 99214; G2211

== ENCOUNTER → 2024-07-15 07:25 | Outpatient (BNVA) | payer OTHER, SELFPAY | PROVIDERS: PCP Family Medicine; Visit Provider Student in an Organized Health Care Education/Training Program | DX: M45.8 Ankylosing spondylitis sacral and sacrococcygeal region (principal); Z51.81 Encounter for therapeutic drug level monitoring; Z79.620 Long term (current) use of immunosuppressive biologic | CPT/HCPCS: 99212 ==